=== PATIENT | male | born 1965 | race African-American/Black ===

== ENCOUNTER 2017-03-26 23:33 | Inpatient (IN) | payer BC ==
--- NOTE | 2017-03-26 23:42 | PDOC ---
History of Present Illness - General History Source: Patient Exam Limitations: No Limitations - History of Present Illness Initial Comments: 03/26/17 23:57 The patient is a 51-year-old male, with a significant past medical history of hyperlipidemia, HTN, borderline diabetes (follows up with Dr. Dawn once a year ), who presents to the ED with two days of left-sided chest discomfort that radiates up to his left shoulder and down to his left shoulder blade. Pt does report moving some things around the house on Wednesday but was not experiencing pain then. He denies any abdominal pain, diarrhea, or constipation. He denies any chest pain or shortness of breath. PCP: Dr. López Felder Hx: Pt denies any tobacco use or drug use. Surgical Hx: Knee surgeries bilaterally (torn meniscus) Allergies: nuts <Page Infante - Last Filed: 03/27/17 00:06> <Melani Lujan - Last Filed: 03/27/17 20:03> - General Stated Complaint: CHEST DISCOMFORT Time Seen by Provider: 03/26/17 23:40 Past History <Page Infante - Last Filed: 03/27/17 00:06> - Past Medical History Anemia: No Asthma: No Cancer: No Cardiac Disorders: No CVA: No COPD: No CHF: No Dementia: No Diabetes: No GI Disorders: Yes (GERD) Disorders: No HTN: Yes Hypercholesterolemia: Yes Liver Disease: No Seizures: No Thyroid Disease: No - Surgical History Abdominal Surgery: No Appendectomy: Yes Cardiac Surgery: No Cholecystectomy: No Lung Surgery: No Neurologic Surgery: No [facility]opedic Surgery: Yes ([facility] - Immunization History Immunization Up to Date: Yes - Psycho/Social/Smoking Cessation Hx Anxiety: No Suicidal Ideation: No Smoking History: Never smoked Have you smoked in the past 12 months: No Hx Alcohol Use: No Drug/Substance Use Hx: No Substance Use Type: None Hx Substance Use Treatment: No <Melani Lujan - Last Filed: 03/27/17 20:03> - Past Medical History Allergies/Adverse Reactions: Allergies Allergy/AdvReac Type Severity Reaction Status Date / Time peanut Allergy Severe Hives,SWELL Verified 03/26/17 23:53 ING tree nut [Tree Nut] Allergy Severe Hives,SWELL Verified 03/26/17 23:53 ING No Known Drug Allergies Allergy Verified 03/26/17 23:53 shellfish derived AdvReac Severe GOUT Verified 03/26/17 23:53 Home Medications: Ambulatory Orders Amlodipine Besylate [Norvasc -] 10 mg PO DAILY 05/25/14 Diltiazem Cd [Cardizem Cd -] 300 mg PO DAILY 05/25/14 Lisinopril [Prinivil] 30 mg PO DAILY 05/25/14 Simvastatin [Zocor -] 20 mg PO HS 05/30/14 Review of Systems - Review of Systems Able to Perform ROS?: Yes Comments:: 03/26/17 23:58 CONSTITUTIONAL: Absent: fever, chills, diaphoresis, generalized weakness, malaise, loss of appetite HEENT: Absent: rhinorrhea, nasal congestion, throat pain, throat swelling, difficulty swallowing, mouth swelling, ear pain, eye pain, visual Changes CARDIOVASCULAR: Present: chest pain Absent: syncope, palpitations, irregular heart rate, lightheadedness, peripheral edema RESPIRATORY: Absent: cough, shortness of breath, dyspnea with exertion, orthopnea, wheezing, stridor, hemoptysis GASTROINTESTINAL: Absent: abdominal pain, abdominal distension, nausea, vomiting, diarrhea, constipation, melena, hematochezia GENITOURINARY: Absent: dysuria, frequency, urgency, hesitancy, hematuria, flank pain, genital pain MUSCULOSKELETAL: Present: left shoulder pain, and left shoulder blade pain. Absent: arthralgia, joint swelling SKIN: Absent: rash, itching, pallor HEMATOLOGIC/IMMUNOLOGIC: Absent: easy bleeding, easy bruising, lymphadenopathy, frequent infections ENDOCRINE: Absent: unexplained weight gain, unexplained weight loss, heat intolerance, cold intolerance NEUROLOGIC: Absent: headache, focal weakness or paresthesias, dizziness, unsteady gait, seizure, mental status changes, bladder or bowel incontinence PSYCHIATRIC: Absent: anxiety, depression, suicidal or homicidal ideation, hallucinations. <Page Infante - Last Filed: 03/27/17 00:06> *Physical Exam - Physical Exam Comments: 03/27/17 00:02 GENERAL: Well developed, well nourished. Awake and alert. No acute distress. Not diaphoretic. +Obese HEENT: Normocephalic, atraumatic. PERRLA, EOMI. No conjunctival pallor. Sclera are non- icteric. Moist mucous membranes. Oropharynx is clear. NECK: Supple. Full ROM. No JVD. Carotid pulses 2+ and symmetric, without bruits. No thyromegaly. No lymphadenopathy. CARDIOVASCULAR: Regular rate and rhythm. No murmurs, rubs, or gallops. Distal pulses are 2+ and symmetric. PULMONARY: No evidence of respiratory distress. Lungs clear to auscultation bilaterally. No wheezing, rales or rhonchi. ABDOMINAL: Soft. Non-tender. Non-distended. No rebound or guarding. No organomegaly. Normoactive bowel sounds. MUSCULOSKELETAL: No CVA tenderness. Moving all extremities. +Pain with movement of left shoulder. EXTREMITIES: No cyanosis. No clubbing. No edema. No calf tenderness. SKIN: Warm and dry. Normal capillary refill. No rashes. No jaundice. NEUROLOGICAL: Alert, awake, appropriate. PSYCHIATRIC: Cooperative. Good eye contact. Appropriate mood and affect. <Page Infante - Last Filed: 03/27/17 00:06> ED Treatment Course - LABORATORY CBC & Chemistry Diagram: 03/27/17 00:04 03/27/17 00:04 <Melani Lujan - Last Filed: 03/27/17 20:03> Medical Decision Making - Medical Decision Making 03/27/17 20:01 Pt with left shoulder and neck pain and chest pain x 2 days. He is overweight HTN and high cholesterol. He is norderline diabetic and admits eating unhealthy foods. He has never had pain lasting like this before. EKG #1 Shows flipped lateral T waves. Pt's troponin elevated, but his CPK and CK-MB are not elevated st this point. EKG#2 is the same as the first. The [place] is not evolving. Pt was given meds, hospitalist notified and he was admitted to tele. <Melani Lujan - Last Filed: 03/27/17 20:03> *DC/Admit/Observation/Transfer - Attestations Scribe Attestion: 03/27/17 00:02 Documentation prepared by Page Infante, acting as medical device sales representative for Melani Lujan MD. <Page Infante - Last Filed: 03/27/17 00:06> - Discharge Dispostion Admit: Yes <Melani Lujan - Last Filed: 03/27/17 20:03> Diagnosis at time of Disposition: Myocardial infarction, Non-ST elevation (NSTEMI) myocardial infarction - Discharge Dispostion Condition at time of disposition: Guarded - Referrals
[2017-03-27 00:13] LABS: BASOPHIL 0.5 % (0-2.0); EOSINOPHIL 1.5 % (0-4.5); MCH 30.6 pg (25.7-33.7); MCHC 33.7 g/dl (32.0-35.9); MEAN CELL VOLUME 90.9 fl (80-96); MEAN PLT VOLUME 8.7 fl (7.5-11.1); NEUTROPHILS 65.1 % (42.8-82.8); PLATELET COUNT 247 K/MM3 (134-434); RDW 12.4 % (11.9-15.9); WHITE BLOOD COUNT 13.7 K/mm3 (4.0-10.0)
[2017-03-27 00:30] LABS: INR 1.04 (0.82-1.09); PROTHROMBIN TIME (PATIENT) 11.4 SEC (9.98-11.88)
[2017-03-27 00:43] LABS: ALBUMIN 3.6 g/dl (3.4-5.0); ANION GAP 8 (8-16); BILIRUBIN,TOTAL 0.3 mg/dL (0.2-1.0); CALCIUM 8.9 mg/dL (8.5-10.1); CO2 29 mmol/L (21-32); CREATININE 0.8 mg/dL (0.7-1.3); GLUCOSE,RANDOM 89 mg/dL (74-106); SGOT/AST 25 U/L (15-37); SGPT/ALT 45 U/L (12-78); TOT PROT 7.1 g/dl (6.4-8.2)
[2017-03-27 00:46] LABS: ALK PHOS 130 U/L (45-117); TROPONIN I 0.07 ng/ml (0.00-0.05)
[2017-03-27] MEDS ORDERED: ENOXAPARIN NA (PORCINE) 100 MG/1 ML DISP.SYRIN SQ ONE ×2 (01:32→01:48)
[2017-03-27] MEDS ORDERED: CLOPIDOGREL BISULFATE 300 MG TABLET PO ONE (01:32)
[2017-03-27] MEDS ORDERED: METOPROLOL TARTRATE 5 MG/5 ML VIAL IVPUSH ONE (01:33)
[2017-03-27] MEDS ORDERED: METOPROLOL TARTRATE 50 MG TABLET (FP) PO ONE (01:34)
[2017-03-27] MEDS ORDERED: ASPIRIN 81 MG CHEWABLE TABLETS PO ONE (01:36)
[2017-03-27] MEDS ORDERED: ASPIRIN 325 MG TABLET ONE (01:47)
[2017-03-27] MEDS ORDERED: METOPROLOL TARTRATE 5 MG/5 ML VIAL ONE (01:47)
[2017-03-27] MEDS ORDERED: METOPROLOL TARTRATE 50 MG TABLET (FP) ONE (01:47)
[2017-03-27] MEDS ORDERED: CLOPIDOGREL BISULFATE 300 MG TABLET ONE (01:48)
--- NOTE | 2017-03-27 02:36 | HP ---
CHIEF COMPLAINT: Left Sided Chest Pain PCP: Dr. Manolo Dawn HISTORY OF PRESENT ILLNESS: This is a 51 y/o male with a past medical history of HTN, HLD, Bord[place] DM. Who presents to the ED with L-sided CP x 2 days. Patient reports the pain as sharp radiating to his L- shoulder, increased with movement. Patient reports lifting heavy bags of clothes for [employer] 1 day ago. Patient reports taking Aleve with little relief. Patient reports having familial Cardiac hx. Patient denies fever, chills, dizziness, SOB, AP, N/V/D, constipation, dysuria. ER course was notable for: (1) Cardiac Enzymes neg x1 (2) EKG- NSR with Nonspecific T wave abnormality (3) WBC 12.7 Recent Travel: None PAST MEDICAL HISTORY: HTN HLD Bordeline DM PAST SURGICAL HISTORY: Meniscus Repair Appendectomy R- Shoulder Arthroscopy Social History: Smoking: Never Alcohol: Occasional Drugs: Denies Lives with family Family History: Mother: HTN, DM Grandfather: [place] Uncle: DM Allergies peanut Allergy (Severe, Verified 03/26/17 23:53) Hives,SWELLING tree nut [Tree Nut] Allergy (Severe, Verified 03/26/17 23:53) Hives,SWELLING No Known Drug Allergies Allergy (Verified 03/26/17 23:53) shellfish derived Adverse Reaction (Severe, Verified 03/26/17 23:53) GOUT HOME MEDICATIONS: Home Medications Medication Instructions Recorded Amlodipine Besylate [Norvasc -] 10 mg PO DAILY 05/25/14 Diltiazem Cd [Cardizem Cd -] 300 mg PO DAILY 05/25/14 Lisinopril [Prinivil] 30 mg PO DAILY 05/25/14 Simvastatin [Zocor -] 20 mg PO HS 05/30/14 Clindamycin [Cleocin -] 300 mg PO TID #30 capsule 07/10/16 Colchicine [Colcrys -] 1.2 mg PO ONCE #3 tab 08/25/16 REVIEW OF SYSTEMS CONSTITUTIONAL: Absent: fever, chills, diaphoresis, generalized weakness, malaise, loss of appetite, weight change HEENT: Absent: rhinorrhea, nasal congestion, throat pain, throat swelling, difficulty swallowing, mouth swelling, ear pain, eye pain, visual changes CARDIOVASCULAR: chest pain Absent: syncope, palpitations, irregular heart rate, lightheadedness, peripheral edema RESPIRATORY: Absent: cough, shortness of breath, dyspnea with exertion, orthopnea, wheezing, stridor, hemoptysis GASTROINTESTINAL: Absent: abdominal pain, abdominal distension, nausea, vomiting, diarrhea, constipation, melena, hematochezia GENITOURINARY: Absent: dysuria, frequency, urgency, hesitancy, hematuria, flank pain, genital pain MUSCULOSKELETAL: L-shoulder pain Absent: myalgia, arthralgia, joint swelling, back pain, neck pain SKIN: Absent: rash, itching, pallor HEMATOLOGIC/IMMUNOLOGIC: Absent: easy bleeding, easy bruising, lymphadenopathy, frequent infections ENDOCRINE: Absent: unexplained weight gain, unexplained weight loss, heat intolerance, cold intolerance NEUROLOGIC: Absent: headache, focal weakness or paresthesias, dizziness, unsteady gait, seizure, mental status changes, bladder or bowel incontinence PSYCHIATRIC: Absent: anxiety, depression, suicidal or homicidal ideation, hallucinations. PHYSICAL EXAMINATION Vital Signs - 24 hr 03/26/17 03/27/17 23:57 02:05 Temperature 97.6 F Pulse Rate 81 82 Respiratory 22 Rate Blood Pressure 147/87 159/93 O2 Sat by Pulse 95 Oximetry (%) GENERAL: Severely Obese, awake, alert, and fully oriented, in no acute distress. HEAD: Normal with no signs of trauma. EYES: Pupils equal, round and reactive to light, extraocular movements intact, sclera anicteric, conjunctiva clear. No lid lag. EARS, NOSE, THROAT: Ears normal, nares patent, oropharynx clear without exudates. Moist mucous membranes. NECK: Normal range of motion, supple without lymphadenopathy, JVD, or masses. LUNGS: Breath sounds equal, clear to auscultation bilaterally. No wheezes, and no crackles. No accessory muscle use. HEART: Regular rate and rhythm, normal S1 and S2 without murmur, rub or gallop. CP non-reproducible upon palpation ABDOMEN: Soft, nontender, not distended, normoactive bowel sounds, no guarding, no rebound, no masses. No hepatomegaly or splenomegaly. MUSCULOSKELETAL: Normal range of motion at all joints. No bony deformities or tenderness. No CVA tenderness. UPPER EXTREMITIES: 2+ pulses, warm, well-perfused. No cyanosis. No clubbing. No peripheral edema. LOWER EXTREMITIES: 2+ pulses, warm, well-perfused. No calf tenderness. No peripheral edema. NEUROLOGICAL: Cranial nerves II-XII intact. Normal speech. Gait not observed. PSYCHIATRIC: Cooperative. Good eye contact. Appropriate mood and affect. SKIN: Warm, dry, normal turgor, no rashes or lesions noted, normal capillary refill. Laboratory Results - last 24 hr 03/27/17 03/27/17 03/27/17 00:04 00:04 00:04 WBC 13.7 H RBC 4.16 Hgb 12.7 Hct 37.8 MCV 90.9 MCH 30.6 MCHC 33.7 RDW 12.4 Plt Count 247 MPV 8.7 Neutrophils % 65.1 Lymphocytes % 21.9 Monocytes % 11.0 H Eosinophils % 1.5 Basophils % 0.5 INR 1.04 Sodium 140 Potassium 3.5 Chloride 103 Carbon Dioxide 29 Anion Gap 8 BUN 11 Creatinine 0.8 Creat Clearance w eGFR > 60 Random Glucose 89 Calcium 8.9 Total Bilirubin 0.3 D AST 25 ALT 45 D Alkaline Phosphatase 130 H Creatine Kinase 141 Troponin I 0.07 H Total Protein 7.1 Albumin 3.6 ASSESSMENT/PLAN: This is a 51 y/o male with a PMHx of: HTN, HLD, Borderline DM. Placed on Tele Observation for NSTEMI for further evaluation of their emergent condition. Problems 1. Chest Pain r/o NSTEMI 2. Hypertension 3. Leukocytosis 4. Hyperlipidemia 5. Borderline DM 6. Severely Obese Problem List - Problem (1) Non-ST elevation (NSTEMI) myocardial infarction Assessment/Plan: - Continue Tele monitoring - HEART Score 4 - SUZI Score 2 - Serial Enzymes neg x1 - Appreciate Cardiology Consult - EKG reviewed - Chest Xray-pending - Asa, Lopressor, Plavix, Lovenox given in ED, will continue - Echo - Stress Test - Low Na Diet - Weight Loss - CBC, BMP, Mg, Phos- am Code(s): I21.4 - NON-ST ELEVATION (NSTEMI) MYOCARDIAL INFARCTION (2) HTN (hypertension) Assessment/Plan: - Stable - Monitor BP - Continue home med - Monitor renal function Code(s): I10 - ESSENTIAL (PRIMARY) HYPERTENSION (3) HLD (hyperlipidemia) Assessment/Plan: - Lipid panel in am - Continue home med - Monitor LFTs Code(s): E78.5 - HYPERLIPIDEMIA, UNSPECIFIED (4) Leukocytosis Assessment/Plan: - Likely secondary to inflammatory vs bacterial - Patient is afebrile - Repeat CBC in am Code(s): D72.829 - ELEVATED WHITE BLOOD CELL COUNT, UNSPECIFIED (5) Severe obesity (BMI 35.0-39.9) with comorbidity Assessment/Plan: - RD - Carb Control Diet - Isometric Exercise - f/u with PCP Code(s): E66.01 - MORBID (SEVERE) OBESITY DUE TO EXCESS CALORIES (6) GERD (gastroesophageal reflux disease) Assessment/Plan: - Continue home med Code(s): K21.9 - GASTRO-ESOPHAGEAL REFLUX DISEASE WITHOUT ESOPHAGITIS (7) History of borderline diabetes mellitus Assessment/Plan: - Controlled - No current med - Monitor BMP Code(s): Z87.898 - PERSONAL HISTORY OF OTHER SPECIFIED CONDITIONS (8) DVT prophylaxis Assessment/Plan: - OOB - SCDs - Lovenox SQ Code(s): VHF1585 - Visit type - Emergency Visit Emergency Visit: Yes ED Registration Date: 03/26/17 Care time: The patient presented to the Emergency Department on the above date and was hospitalized for further evaluation of their emergent condition. - New Patient This patient is new to me today: Yes Date on this admission: 03/27/17 - Critical Care Critical Care patient: No
[2017-03-27 06:12] VITALS: BMI 48.9
[2017-03-27] MEDS ORDERED: PNEUMOC 13-VAL CONJ-DIP CRM/PF 0.5 ML DISP.SYRIN IM ONE (06:12)
[2017-03-27 07:43] LABS: THYROID STIMULATING HORMONE 1.25 uIU/ml (0.358-3.74); TROPONIN I 0.08 ng/ml (0.00-0.05)
[2017-03-27] MEDS ORDERED: PT OWN MED DRAWER 7, Y5N ONE (09:27)
[2017-03-27] MEDS ORDERED: ASPIRIN 81 MG CHEWABLE TABLETS PO SCH (10:00)
[2017-03-27] MEDS: METOPROLOL TARTRATE 25 MG TABLET (FP) PO SCH ×2 (10:10→21:06)
[2017-03-27] MEDS: amLODIPine BESYLATE 10 MG TABLET (FP) PO SCH (10:10)
[2017-03-27] MEDS: ENOXAPARIN NA (PORCINE) 100 MG/1 ML DISP.SYRIN SQ SCH ×2 (11:58→21:06)
--- NOTE | 2017-03-27 11:59 | CONSULT ---
Consult Consult Specialty:: Cardiology Referred by:: ICU Reason for Consultation:: Chest pain - History of Present Illness Chief Complaint: Chest pain History of Present Illness: 51 yo AA male Known h/o HTN and dyslipidemia Followed by Dr. Bruner as outpatient Now presents with 2-3 days of intermittent chest pain and neck pain Pain is triggered by movement of neck or left arm and torso movement Worse with walking Initial ECG in ED showed non-specific T-wave changes and Trop 0.07 This AM still with CP/neck pain with movement. No prior h/o CAD, PCI or CABG or MT - Alcohol/Substance Use Hx Alcohol Use: No - Smoking History Smoking history: Never smoked Have you smoked in the past 12 months: No Home Medications - Allergies Allergies/Adverse Reactions: Allergies Allergy/AdvReac Type Severity Reaction Status Date / Time peanut Allergy Severe Hives,SWELL Verified 03/26/17 23:53 ING tree nut [Tree Nut] Allergy Severe Hives,SWELL Verified 03/26/17 23:53 ING No Known Drug Allergies Allergy Verified 03/26/17 23:53 shellfish derived AdvReac Severe GOUT Verified 03/26/17 23:53 - Home Medications Home Medications: Ambulatory Orders Amlodipine Besylate [Norvasc -] 10 mg PO DAILY 05/25/14 Diltiazem Cd [Cardizem Cd -] 300 mg PO DAILY 05/25/14 Lisinopril [Prinivil] 30 mg PO DAILY 05/25/14 Simvastatin [Zocor -] 20 mg PO HS 05/30/14 Review of Systems - Review of Systems HENT: reports: Other (Neck pain) Cardiovascular: reports: Chest Pain Physical Exam Vital Signs: Vital Signs Temperature 98.0 F 03/27/17 06:05 Pulse Rate 66 03/27/17 06:05 Respiratory Rate 20 03/27/17 06:05 Blood Pressure 150/91 03/27/17 06:05 O2 Sat by Pulse Oximetry (%) 95 03/27/17 06:05 Constitutional: Yes: No Distress, Calm Eyes: Yes: WNL HENT: Yes: WNL Neck: Yes: WNL, Supple, Trachea Midline, Thyromegaly Cardiovascular: Yes: WNL Respiratory: Yes: WNL, Regular, CTA Bilaterally Gastrointestinal: Yes: WNL, Normal Bowel Sounds Musculoskeletal: Yes: Other ((+) reproducible chest pain on palpation) Extremities: Yes: WNL Edema: No Imaging - Results EKG: Image Reviewed (ECG at 03/27/2017 (01:40) NSR non-specific T wave changes.) Assessment/Plan 51 yo AA male with CV risk factors of HTN and dyslipidemia Now with Chest pain by history consistent with musculoskeletal etiology, however with mildly elevated Trop and evolving ECG changes. I discussed with both he and his mother at the bedside the clinical therapy options including proceeding with cardiac cath given trop and ECG. Alternatively pursuing a pharma stress is not unreasonable but given his CV risk and (+) trop, I would still feel obliged to have angiogram even if the MIBI was normal. HE understood and wanted to wait until Dr. Bruner returned for further discussion. Would continue to treat as ACS with ASA, LMWH, metoprolol and high intensity statin therapy. Continue to trend cardiac enzymes
[2017-03-27 12:37] LABS: TROPONIN I 0.08 ng/ml (0.00-0.05)
[2017-03-27] MEDS ORDERED: CLOPIDOGREL BISULFATE 75 MG TABLET (FP) PO ONE (17:10)
[2017-03-27 21:54] LABS: TROPONIN I 0.09 ng/ml (0.00-0.05)
[2017-03-27] MEDS ORDERED: ATORVASTATIN CA 10 MG TABLET (FP) PO SCH ×3 (22:00)
[2017-03-28] MEDS ORDERED: ZOLPIDEM TARTRATE 5 MG TABLET PO STA (00:40)
[2017-03-28 06:06] LABS: BASOPHIL 0.4 % (0-2.0); EOSINOPHIL 2.5 % (0-4.5); MCHC 32.8 g/dl (32.0-35.9); MEAN CELL VOLUME 91.6 fl (80-96); MEAN PLT VOLUME 9.3 fl (7.5-11.1); NEUTROPHILS 59.4 % (42.8-82.8); PLATELET COUNT 274 K/MM3 (134-434); RDW 12.5 % (11.9-15.9); WHITE BLOOD COUNT 11.5 K/mm3 (4.0-10.0)
[2017-03-28 06:44] LABS: ANION GAP 7 (8-16); CO2 32 mmol/L (21-32); CREATININE 0.7 mg/dL (0.7-1.3); GLUCOSE,RANDOM 98 mg/dL (74-106); MAGNESIUM 1.9 mg/dL (1.8-2.4); PHOSPHOROUS 3.4 mg/dL (2.5-4.9)
[2017-03-28] MEDS ORDERED: PT OWN MED DRAWER 7, Y5N ONE (09:21)
[2017-03-28] MEDS: ASPIRIN 81 MG CHEWABLE TABLETS PO SCH (09:37)
[2017-03-28] MEDS: METOPROLOL TARTRATE 25 MG TABLET (FP) PO SCH ×2 (09:38→21:43)
[2017-03-28] MEDS: ENOXAPARIN NA (PORCINE) 100 MG/1 ML DISP.SYRIN SQ SCH ×2 (09:38→21:49)
[2017-03-28] MEDS: CLOPIDOGREL BISULFATE 75 MG TABLET (FP) PO SCH (09:38)
[2017-03-28] MEDS: amLODIPine BESYLATE 10 MG TABLET (FP) PO SCH (09:39)
--- NOTE | 2017-03-28 12:34 | PN ---
Progress Note, Physician History of Present Illness: No events overnight Still with neck pain and left shoulder MSK - Current Medication List Current Medications: Active Medications Amlodipine Besylate (Norvasc -) 10 mg PO DAILY [facility] Last Admin: 03/28/17 09:39 Dose: 10 mg Aspirin (Asa -) 81 mg PO DAILY [facility] Last Admin: 03/28/17 09:37 Dose: 81 mg Atorvastatin Calcium (Lipitor -) 80 mg PO HS [facility] Last Admin: 03/27/17 21:05 Dose: 80 mg Clopidogrel Bisulfate (Plavix -) 75 mg PO DAILY [facility] Last Admin: 03/28/17 09:38 Dose: 75 mg Diltiazem HCl (Cardizem Cd -) 300 mg PO DAILY [facility] Last Admin: 03/28/17 09:37 Dose: 300 mg Enoxaparin Sodium (Lovenox -) 100 mg SQ BID [facility] Last Admin: 03/28/17 09:38 Dose: 100 mg Metoprolol Tartrate (Lopressor -) 25 mg PO BID [facility] Last Admin: 03/28/17 09:38 Dose: 25 mg - Objective Vital Signs: Vital Signs Temperature 98.6 F 03/28/17 10:00 Pulse Rate 71 03/28/17 12:00 Respiratory Rate 20 03/28/17 12:00 Blood Pressure 148/87 03/28/17 12:00 O2 Sat by Pulse Oximetry (%) 96 03/28/17 07:40 Constitutional: Yes: Well Nourished, No Distress, Calm Eyes: Yes: WNL, Conjunctiva Clear HENT: Yes: WNL, Atraumatic Neck: Yes: WNL, Supple, Trachea Midline Cardiovascular: Yes: Regular Rate and Rhythm Respiratory: Yes: WNL, Regular, CTA Bilaterally Gastrointestinal: Yes: WNL Extremities: Yes: WNL Edema: No Labs: CBC, BMP 03/28/17 05:10 03/28/17 05:10 INR, PTT INR 1.04 (0.82-1.09) 03/27/17 00:04 Assessment/Plan 51 yo AA male with CV risk factors of HTN and dyslipidemia Non-cardiac chest pain but with (+) troponin and ECG changes suggestive of ACS -Discussed with patient again this AM, will transfer to [facility] tomorrow for cardiac cath -Transfer will be in afternoon directly to the dental laboratory manager -Continue LMWH, hold tomorrow AM dose please -NPO after lunch -Continue metoprolol,ASA and statin. Please contact me if he develops any recurrent chest pain or change in clinical status.
--- NOTE | 2017-03-28 13:38 | PN ---
Physical Exam: SUBJECTIVE: Patient seen and examined in ICU. Family at bedside. Continued left sternal border chest pain that worsens with movement and light palpation. OBJECTIVE: Vital Signs Period Temp Pulse Resp BP Sys/Crawford Pulse Ox Last 24 Hr 98.0 F-98.6 F 68-88 18-24 132-154/70-93 96-96 GENERAL: The obese patient is awake, alert, and fully oriented, in no acute distress. LUNGS: Breath sounds equal, clear to auscultation bilaterally, no wheezes, no crackles, no accessory muscle use. HEART: Regular rate and rhythm, S1, S2 without murmur. ABDOMEN: Soft, nontender, nondistended, normoactive bowel sounds, no guarding. Obese abdomen. EXTREMITIES: 2+ pulses, warm, well-perfused, no edema. NEUROLOGICAL: Cranial nerves II through XII grossly intact. Normal speech, gait steady. PSYCH: Normal mood, normal affect. SKIN: Warm, dry, normal turgor, no rashes or lesions noted Laboratory Results - last 24 hr 03/27/17 03/27/17 03/27/17 16:00 20:45 20:45 WBC RBC Hgb Hct MCV MCH MCHC RDW Plt Count MPV Neutrophils % Lymphocytes % Monocytes % Eosinophils % Basophils % Sodium Potassium Chloride Carbon Dioxide Anion Gap BUN Creatinine Random Glucose Calcium Phosphorus Magnesium 2.0 Creatine Kinase 173 D Creatine Kinase Index Y CK-MB (CK-2) < 1.000 CK-MB (CK-2) Rel Index Cancelled Troponin I 0.09 H 03/28/17 03/28/17 03/28/17 05:10 05:10 05:10 WBC 11.5 H RBC 4.26 Hgb 12.8 Hct 39.0 MCV 91.6 MCH 30.0 MCHC 32.8 RDW 12.5 Plt Count 274 MPV 9.3 Neutrophils % 59.4 Lymphocytes % 27.8 D Monocytes % 9.9 Eosinophils % 2.5 Basophils % 0.4 Sodium 141 Potassium 3.8 Chloride 102 Carbon Dioxide 32 Anion Gap 7 L BUN 10 Creatinine 0.7 Random Glucose 98 Calcium 9.0 Phosphorus 3.4 Magnesium 1.9 Creatine Kinase 153 Creatine Kinase Index 0.7 CK-MB (CK-2) < 1.000 CK-MB (CK-2) Rel Index Troponin I 0.10 H 03/28/17 05:10 WBC RBC Hgb Hct MCV MCH MCHC RDW Plt Count MPV Neutrophils % Lymphocytes % Monocytes % Eosinophils % Basophils % Sodium Potassium Chloride Carbon Dioxide Anion Gap BUN Creatinine Random Glucose Calcium Phosphorus Magnesium Creatine Kinase Creatine Kinase Index CK-MB (CK-2) CK-MB (CK-2) Rel Index Cancelled Troponin I Active Medications 3 Generic Name Dose Route Start Last Admin Trade Name Andrea PRN Reason Stop Dose Admin Amlodipine Besylate 10 mg 03/27/17 10:00 03/28/17 09:39 Norvasc - PO 10 mg DAILY FARHAT Administration Aspirin 81 mg 03/28/17 10:00 03/28/17 09:37 Asa - PO 81 mg DAILY FARHAT Administration Atorvastatin Calcium 80 mg 03/27/17 22:00 03/27/17 21:05 Lipitor - PO 80 mg HS FARHAT Administration Clopidogrel Bisulfate 75 mg 03/28/17 10:00 03/28/17 09:38 Plavix - PO 75 mg DAILY FARHAT Administration Diltiazem HCl 300 mg 03/27/17 10:00 03/28/17 09:37 Cardizem Cd - PO 300 mg DAILY FARHAT Administration Enoxaparin Sodium 100 mg 03/27/17 10:00 03/28/17 09:38 Lovenox - SQ 100 mg BID FARHAT Administration Metoprolol Tartrate 25 mg 03/27/17 10:00 03/28/17 09:38 Lopressor - PO 25 mg BID AFRHAT Administration EKG: NSR non-specific T wave changes. ASSESSMENT/PLAN: A: 51 yo man with PMH HTN, HLD, GERD and boderline DM with consistent left sternal border chest pain which increases with movement. P: 1. ACS - ASA 81 - Lopressor 25 bid - LMWH 100mg bid- hold 03/29 AM dose - Plavix 75 - Lipitor 80 qhs - Troponins uptrending - continue to trend trop - Cards [place] following - Transfer to [facility] for cardiac cath 03/29 - Will need outpatient MICHI evaluation 2. HTN - Norvasc 10 - Diltiazem 300 qd - Metoprolol 25 bid 3. HLD - Lipitor 4. Obesity class III - encouraged lifestyle changes - Will need outpatient MICHI evaluation 5. F/E/N - Low Na Diet - NPO after lunch for cardiac cath 6. PPX - Lovenox 100mg bid - OOB Dispo- Patient will be transferred to [facility] 03/29 for cardiac cath. Visit type - Emergency Visit Emergency Visit: Yes ED Registration Date: 03/27/17 Care time: The patient presented to the Emergency Department on the above date and was hospitalized for further evaluation of their emergent condition. - New Patient This patient is new to me today: Yes Date on this admission: 03/30/17 - Critical Care Critical Care patient: No
[2017-03-28] MEDS ORDERED: ACETAMINOPHEN 500 MG TABLET (FP) PO PRN (13:39)
[2017-03-28] MEDS ORDERED: ZOLPIDEM TARTRATE 5 MG TABLET PO PRN (21:28)
[2017-03-28] MEDS ORDERED: ATORVASTATIN CA 80 MG TABLET (FP) PO SCH (21:52)
[2017-03-29 06:18] LABS: BASOPHIL 0.5 % (0-2.0); MEAN CELL VOLUME 90.8 fl (80-96); MEAN PLT VOLUME 9.1 fl (7.5-11.1); NEUTROPHILS 57.8 % (42.8-82.8); PLATELET COUNT 296 K/MM3 (134-434); RDW 12.4 % (11.9-15.9); WHITE BLOOD COUNT 10.8 K/mm3 (4.0-10.0)
[2017-03-29 06:55] LABS: ANION GAP 5 (8-16); CALCIUM 9.6 mg/dL (8.5-10.1); CO2 33 mmol/L (21-32); CREATININE 0.7 mg/dL (0.7-1.3); GLUCOSE,RANDOM 98 mg/dL (74-106)
[2017-03-29 06:57] LABS: TROPONIN I 0.09 ng/ml (0.00-0.05)
--- NOTE | 2017-03-29 09:14 | EKG ---
Test Reason : Blood Pressure : / mmHG Vent. Rate : 067 BPM Atrial Rate : 067 BPM P-R Int : 168 ms QRS Dur : 114 ms QT Int : 440 ms P-R-T Axes : 053 040 052 degrees QTc Int : 464 ms NORMAL SINUS RHYTHM INCOMPLETE LEFT BUNDLE BRANCH BLOCK MINIMAL VOLTAGE CRITERIA FOR LVH, MAY BE NORMAL VARIANT NONSPECIFIC T WAVE ABNORMALITY PROLONGED QT ABNORMAL ECG WHEN COMPARED WITH ECG OF 27-MAR-2017 11:25, NO SIGNIFICANT CHANGE WAS FOUND Confirmed by GREYSON PEREZ MD ([id number]) on 03/29/2017 9:13:58 AM Referred By: Cory CLINTON Confirmed By:GREYSON PEREZ MD
[2017-03-29] MEDS ORDERED: PT OWN MED DRAWER 7, Y5N ONE ×2 (09:16→10:01)
--- NOTE | 2017-03-29 09:17 | PN ---
Progress Note, Physician Chief Complaint: cp History of Present Illness: no more cp. no sob no palpitations, syncope - Current Medication List Current Medications: Active Medications Acetaminophen (Tylenol -) 1,000 mg PO Q6H PRN PRN Reason: FEVER OR PAIN Amlodipine Besylate (Norvasc -) 10 mg PO DAILY [facility] Last Admin: 03/28/17 09:39 Dose: 10 mg Aspirin (Asa -) 81 mg PO DAILY [facility] Last Admin: 03/28/17 09:37 Dose: 81 mg Atorvastatin Calcium (Lipitor -) 80 mg PO HS [facility] Clopidogrel Bisulfate (Plavix -) 75 mg PO DAILY [facility] Last Admin: 03/28/17 09:38 Dose: 75 mg Diltiazem HCl (Cardizem Cd -) 300 mg PO DAILY [facility] Last Admin: 03/28/17 09:37 Dose: 300 mg Enoxaparin Sodium (Lovenox -) 100 mg SQ BID [facility] Last Admin: 03/28/17 21:49 Dose: 100 mg Metoprolol Tartrate (Lopressor -) 25 mg PO BID [facility] Last Admin: 03/28/17 21:43 Dose: 25 mg Zolpidem Tartrate (Ambien -) 10 mg PO HS PRN PRN Reason: INSOMNIA Last Admin: 03/28/17 21:44 Dose: 10 mg - Objective Vital Signs: Vital Signs Temperature 98.8 F 03/28/17 14:00 Pulse Rate 91 H 03/29/17 08:00 Respiratory Rate 21 03/29/17 08:14 Blood Pressure 152/90 03/29/17 08:00 O2 Sat by Pulse Oximetry (%) 98 03/29/17 08:14 Constitutional: Yes: No Distress, Calm, Obese Cardiovascular: Yes: Regular Rate and Rhythm, S1, S2. No: Gallop, Murmur, Rub Respiratory: Yes: Regular, CTA Bilaterally. No: Accessory Muscle Use, Rales, Wheezes Extremities: No: Cold Edema: No Neurological: Yes: Alert, Oriented Psychiatric: No: Agitated Labs: CBC, BMP 03/29/17 05:05 03/29/17 05:05 INR, PTT INR 1.04 (0.82-1.09) 03/27/17 00:04 - ....Imaging EKG: Other (tele: NSR) Assessment/Plan atypical CP -sx's very positional and pleuritic component noted (with cough)--suspect costochondritis/other m-skel. -doubt pericarditis but exam limited (obese habitus)--check echo for effusion, CRP/ESR -trop flat and in intermediate range not diagnostic of myocardial injury (0.07 to 0.10) -ECG changes here suspicious for active myocardial ischemia per dr frederick (vs LVH with repol abnormalities) -plan is for cath today per dr frederick d/w pt and family -cont meds as doing: AC (lovenox--held this am), ASA, metopr, statin -sx's resolving -further plan following cath results today HTN: -suboptimal control -cont amlodipine, diltiazem (home regimen) -metopr added here -on lisinopril at home, not being given here--resumed today -observe bp trend
[2017-03-29] MEDS: ASPIRIN 81 MG CHEWABLE TABLETS PO SCH (09:22)
[2017-03-29] MEDS: METOPROLOL TARTRATE 25 MG TABLET (FP) PO SCH (09:22)
--- NOTE | 2017-03-29 09:22 | EKG ---
Test Reason : Blood Pressure : / mmHG Vent. Rate : 069 BPM Atrial Rate : 069 BPM P-R Int : 190 ms QRS Dur : 108 ms QT Int : 430 ms P-R-T Axes : 004 047 004 degrees QTc Int : 460 ms NORMAL SINUS RHYTHM MINIMAL VOLTAGE CRITERIA FOR LVH, MAY BE NORMAL VARIANT NONSPECIFIC T WAVE ABNORMALITY PROLONGED QT ABNORMAL ECG WHEN COMPARED WITH ECG OF 27-MAR-2017 01:40, NO SIGNIFICANT CHANGE WAS FOUND Confirmed by ANA GREER, GREYSON ([id number]) on 03/29/2017 9:22:02 AM Referred By: Tre FLORIAN Confirmed By:GREYSON PEREZ MD
[2017-03-29] MEDS: CLOPIDOGREL BISULFATE 75 MG TABLET (FP) PO SCH (09:23)
[2017-03-29] MEDS: amLODIPine BESYLATE 10 MG TABLET (FP) PO SCH (09:23)
--- NOTE | 2017-03-29 09:29 | EKG ---
Test Reason : Blood Pressure : / mmHG Vent. Rate : 077 BPM Atrial Rate : 077 BPM P-R Int : 174 ms QRS Dur : 098 ms QT Int : 386 ms P-R-T Axes : 012 032 -10 degrees QTc Int : 436 ms POOR DATA QUALITY, INTERPRETATION MAY BE ADVERSELY AFFECTED NORMAL SINUS RHYTHM NONSPECIFIC T WAVE ABNORMALITY ABNORMAL ECG WHEN COMPARED WITH ECG OF 05-MAR-2008 09:20, PREMATURE VENTRICULAR COMPLEXES ARE NO LONGER PRESENT T WAVE INVERSION LESS EVIDENT IN ANTEROLATERAL LEADS Confirmed by GREYSON PEREZ MD ([id number]) on 03/29/2017 9:29:14 AM Referred By: Confirmed By:GREYSON PEREZ MD
--- NOTE | 2017-03-29 09:29 | EKG ---
Test Reason : Blood Pressure : / mmHG Vent. Rate : 082 BPM Atrial Rate : 082 BPM P-R Int : 166 ms QRS Dur : 114 ms QT Int : 384 ms P-R-T Axes : 002 020 027 degrees QTc Int : 448 ms NORMAL SINUS RHYTHM MINIMAL VOLTAGE CRITERIA FOR LVH, MAY BE NORMAL VARIANT NONSPECIFIC T WAVE ABNORMALITY ABNORMAL ECG WHEN COMPARED WITH ECG OF 05-MAR-2008 09:20, PREMATURE VENTRICULAR COMPLEXES ARE NO LONGER PRESENT T WAVE INVERSION LESS EVIDENT IN LATERAL LEADS Confirmed by GREYSON PEREZ MD ([id number]) on 03/29/2017 9:29:23 AM Referred By: Confirmed By:GREYSON PEREZ MD
--- NOTE | 2017-03-29 10:46 | DS ---
Physical Exam: SUBJECTIVE: Patient seen and examined in ICU. No acute changes overnight, no new chest pain. He tries not to move as he has feels the stab in his chest. OBJECTIVE: Vital Signs Period Temp Pulse Resp BP Sys/Crawford Pulse Ox Last 24 Hr 97.9 F-98.8 F 64-91 17-25 108-167/81-100 98-98 PE Neuro: alert, awake, cn 2-12intact Pulm: CTAB CV: s1 s2 rrr no mrg Abd: s nt nd + bs Ext: Warm, no calf tenderness, well perfused MSK: sternal tenderness with movement r to left, refers to back Laboratory Results - last 24 hr 03/29/17 03/29/17 05:05 05:05 WBC 10.8 H RBC 4.38 Hgb 13.1 Hct 39.7 MCV 90.8 MCH 30.0 MCHC 33.0 RDW 12.4 Plt Count 296 MPV 9.1 Neutrophils % 57.8 Lymphocytes % 28.6 Monocytes % 10.1 Eosinophils % 3.0 Basophils % 0.5 Sodium 140 Potassium 3.8 Chloride 102 Carbon Dioxide 33 H Anion Gap 5 L BUN 10 Creatinine 0.7 Random Glucose 98 Calcium 9.6 Troponin I 0.09 H HOSPITAL COURSE: Date of Admission:03/27/17 Date of Discharge: 03/29/17 Minutes to complete discharge: 36 Discharge Summary Reason For Visit: CELLULITIS,NON-ST ELEVATION (NSTEMI)MYOCARDIAL Current Active Problems DVT prophylaxis (Acute) GERD (gastroesophageal reflux disease) (Acute) HLD (hyperlipidemia) (Acute) HTN (hypertension) (Acute) History of borderline diabetes mellitus (Acute) Leukocytosis (Acute) Hospital Course: Initial Hospital Course: Briefly, this 51 year old male with a past medical history of HTN, HLD, presented to the ED with L-sided chest pain for 2-3 days. The pain was sharp and radiated to his L- shoulder exacerbated with movement to the neck. 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 Patient reports taking Aleve with little relief. Patient reports having familial Cardiac hx. Subsequent Hospital Course/Progress Note/Discharge Summary: 1. Chest pain/r/o ACS -Initial EKG shows non-specific T-wave changes -Troponins 0.07-0.10 -Due to CV risk (HTN, HLD) and positive trop he is to be transferred to [facility] for cardiac cath -Lovenox 100mg BID - this morning dose held -Plavix 75mg qday -Started metoprolol 25mg BID -Lipitor 80mg hs 2. HTN -Cont home norvasc 10mg, cardizem CD 300mg daily, lisinopril 30mg daily Dispo: - Transfer to [facility] for angiogram - Pt and mother aware of plan Condition: Stable - Instructions Diet, Activity, Other Instructions: Transfer to [facility] for angiogram with Dr. Nation Referrals: Nasrin Dawn MD [Staff Physician] - Loco Bruner MD [Staff Physician] - Disposition: TRANSFER ACUTE CARE/OTHER HOSP - Home Medications Comprehensive Discharge Medication List: Ambulatory Orders Amlodipine Besylate [Norvasc -] 10 mg PO DAILY 05/25/14 Diltiazem Cd [Cardizem Cd -] 300 mg PO DAILY 05/25/14 Lisinopril [Prinivil] 30 mg PO DAILY 05/25/14 Simvastatin [Zocor -] 20 mg PO HS 05/30/14 Problem List - Problems (1) Elevated troponin Code(s): R74.8 - ABNORMAL LEVELS OF OTHER SERUM ENZYMES (2) T wave inversion in electrocardiogram Code(s): R94.31 - ABNORMAL ELECTROCARDIOGRAM [ECG] [EKG] This patient is new to me today: Yes Date on this admission: 03/29/17 Emergency Visit: Yes ED Registration Date: 03/27/17 Care time: The patient presented to the Emergency Department on the above date and was hospitalized for further evaluation of their emergent condition. Critical Care patient: No - Discharge Referral Referred to [facility] Med P.C.: No
[2017-03-29] MEDS ORDERED: LISINOPRIL 20 MG TABLET (FP) PO SCH (11:30)
--- NOTE | 2017-03-29 12:25 | PN ---
Teaching Attending Note Name of Resident: Tommy Anne ATTENDING PHYSICIAN STATEMENT I saw and evaluated the patient. I reviewed the resident's note and discussed the case with the resident. I agree with the resident's findings and plan as documented. SUBJECTIVE: Pt seen and examined in the ICU. Briefly, 51yo male with h/o HTN, hyperlipidemia who presented with chest pain described as sharp and pressure like with radiation to arm and jaw with numbness. Worse with certain positions without shortness of breath, nausea or vomiting. No fevers or chills. Pt nonsmoker but with family history of CAD. Had mild elevation of troponins, given ASA, plavix, started on LMWH, transferred to ICU for further monitoring. OBJECTIVE: Last Vital Signs Temp Pulse Resp BP Pulse Ox 98.7 F 70 22 154/92 98 03/29/17 10:00 03/29/17 12:06 03/29/17 12:06 03/29/17 12:06 03/29/17 08:14 Intake & Output 03/26/17 03/27/17 03/28/17 03/29/17 23:59 23:59 23:59 23:59 Intake Total 1360 650 Output Total 500 503 Balance 860 147 Weight 250 lb 331 lb Gen: NAD at rest Heart: RRR Lung: decreased breath sounds at the bases Abd: soft, nontender Ext: no edema CBC, BMP 03/29/17 05:05 03/29/17 05:05 Troponin, BNP 03/29/17 05:05 Troponin I 0.09 H Active Medications Acetaminophen (Tylenol -) 1,000 mg PO Q6H PRN PRN Reason: FEVER OR PAIN Amlodipine Besylate (Norvasc -) 10 mg PO DAILY [facility] Last Admin: 03/29/17 09:23 Dose: 10 mg Aspirin (Asa -) 81 mg PO DAILY [facility] Last Admin: 03/29/17 09:22 Dose: 81 mg Atorvastatin Calcium (Lipitor -) 80 mg PO [facility] Clopidogrel Bisulfate (Plavix -) 75 mg PO DAILY [facility] Last Admin: 03/29/17 09:23 Dose: 75 mg Diltiazem HCl (Cardizem Cd -) 300 mg PO DAILY [facility] Last Admin: 03/29/17 09:22 Dose: 300 mg Enoxaparin Sodium (Lovenox -) 100 mg SQ BID [facility] Last Admin: 03/28/17 21:49 Dose: 100 mg Lisinopril (Prinivil) 30 mg PO DAILY [facility] Metoprolol Tartrate (Lopressor -) 25 mg PO BID [facility] Last Admin: 03/29/17 09:22 Dose: 25 mg Zolpidem Tartrate (Ambien -) 10 mg PO HS PRN PRN Reason: INSOMNIA Last Admin: 03/28/17 21:44 Dose: 10 mg ASSESSMENT AND PLAN: Chest Pain +Troponins r/o [place] HTN Hyperlipidemia - ASA, plavix - beta federico, statin - continue anticoagulation - for transfer for cardiac catheterization per cardiology
[2017-03-29 12:42] LABS: C-REACTIVE PROTEIN 1.7 MG/DL (0.00-0.3)
--- NOTE | 2017-03-29 14:38 | PN ---
Physical Exam: SUBJECTIVE: Patient seen and examined. Feeling better today, states that chest pain is much better. No other complaints. Patient denies shortness of breath, abdominal pain. OBJECTIVE: Vital Signs Temperature 98.7 F 03/29/17 10:00 Pulse Rate 70 03/29/17 12:06 Respiratory Rate 22 03/29/17 12:06 Blood Pressure 154/92 03/29/17 12:06 O2 Sat by Pulse Oximetry (%) 98 03/29/17 08:14 GENERAL: The patient is awake, alert, and fully oriented, in no acute distress. HEAD: Normal with no signs of trauma. EYES: extraocular movements intact, sclera anicteric, conjunctiva clear. No ptosis. ENT: Ears normal, nares patent, oropharynx clear without exudates, moist mucous membranes. NECK: Trachea midline, full range of motion, supple. LUNGS: Breath sounds equal, clear to auscultation bilaterally, no wheezes, no crackles, no accessory muscle use. HEART: Regular rate and rhythm, S1, S2 without murmur, rub or gallop. ABDOMEN: Soft, nontender, nondistended, normoactive bowel sounds, no guarding, no rebound. EXTREMITIES: warm, well-perfused, no edema. NEUROLOGICAL: Cranial nerves II through X grossly intact. Normal speech, gait not observed. PSYCH: Normal mood, normal affect. SKIN: Warm, dry, normal turgor, no rashes or lesions noted Laboratory Results - last 24 hr 03/29/17 03/29/17 03/29/17 05:05 05:05 05:05 WBC 10.8 H RBC 4.38 Hgb 13.1 Hct 39.7 MCV 90.8 MCH 30.0 MCHC 33.0 RDW 12.4 Plt Count 296 MPV 9.1 Neutrophils % 57.8 Lymphocytes % 28.6 Monocytes % 10.1 Eosinophils % 3.0 Basophils % 0.5 ESR Sodium 140 Potassium 3.8 Chloride 102 Carbon Dioxide 33 H Anion Gap 5 L BUN 10 Creatinine 0.7 Random Glucose 98 Calcium 9.6 Troponin I 0.09 H C-Reactive Protein 1.7 H Cancelled 03/29/17 05:05 WBC RBC Hgb Hct MCV MCH MCHC RDW Plt Count MPV Neutrophils % Lymphocytes % Monocytes % Eosinophils % Basophils % ESR 19 Sodium Potassium Chloride Carbon Dioxide Anion Gap BUN Creatinine Random Glucose Calcium Troponin I C-Reactive Protein Active Medications Generic Name Dose Route Start Last Admin Trade Name Freq PRN Reason Stop Dose Admin Acetaminophen 1,000 mg 03/28/17 13:39 Tylenol - PO Q6H PRN FEVER OR PAIN Amlodipine Besylate 10 mg 03/27/17 10:00 03/29/17 09:23 Norvasc - PO 10 mg DAILY [facility] Administration Aspirin 81 mg 03/28/17 10:00 03/29/17 09:22 Asa - PO 81 mg DAILY [facility] Administration Atorvastatin Calcium 80 mg 03/28/17 21:52 Lipitor - PO HS [facility] Clopidogrel Bisulfate 75 mg 03/28/17 10:00 03/29/17 09:23 Plavix - PO 75 mg DAILY [facility] Administration Diltiazem HCl 300 mg 03/27/17 10:00 03/29/17 09:22 Cardizem Cd - PO 300 mg DAILY [facility] Administration Enoxaparin Sodium 100 mg 03/27/17 10:00 03/28/17 21:49 Lovenox - SQ 100 mg BID [facility] Administration Lisinopril 30 mg 03/29/17 11:30 03/29/17 13:50 Prinivil PO 30 mg DAILY [facility] Administration Metoprolol Tartrate 25 mg 03/27/17 10:00 03/29/17 09:22 Lopressor - PO 25 mg BID [facility] Administration Zolpidem Tartrate 10 mg 03/28/17 21:28 03/28/17 21:44 Ambien - PO 10 mg HS PRN Administration INSOMNIA ASSESSMENT/PLAN: 51 yo m w/ pmh HTN, HLD and borderline DM presented to the ED w/ a 2 day history of chest pain with radiation to the left shoulder and neck. He was found to have nonspecific T wave changes on EKG and an elevated troponin I. He was transferred to the ICU for further monitoring. Patient is for transfer to [facility] today for cardiac cath. Neuro -Patient is A&Ox3, no focal neurological deficits Cardiac -nonspecific t wave changes on EKG and troponemia -Troponin in .09 today -Patient is for cardiac cath at [facility] this afternoon FEN -no fluids indicated at this time -no electrolyte abnormalities -sodium controlled diet Dispo -for transfer to [facility] this afternoon per cardiology Problem List - Problems (1) Elevated troponin Code(s): R74.8 - ABNORMAL LEVELS OF OTHER SERUM ENZYMES (2) HLD (hyperlipidemia) Code(s): E78.5 - HYPERLIPIDEMIA, UNSPECIFIED (3) HTN (hypertension) Code(s): I10 - ESSENTIAL (PRIMARY) HYPERTENSION (4) History of borderline diabetes mellitus Code(s): Z87.898 - PERSONAL HISTORY OF OTHER SPECIFIED CONDITIONS (5) Acute electrocardiogram changes Code(s): R94.31 - ABNORMAL ELECTROCARDIOGRAM [ECG] [EKG] Visit type - Emergency Visit Emergency Visit: Yes ED Registration Date: 03/27/17 Care time: The patient presented to the Emergency Department on the above date and was hospitalized for further evaluation of their emergent condition. - New Patient This patient is new to me today: Yes Date on this admission: 03/29/17 - Critical Care Critical Care patient: Yes Total Critical Care Time (in minutes): 35 Critical Care Statement: The care of this patient involved high complexity decision making to prevent further life threatening deterioration of the patient 's condition and/or to evalute & treat vital organ system(s) failure or risk of failure.
[2017-03-29 15:29] VITALS: BP 140/84; PULSE 73; TEMP 98.5
== END 2017-03-29 15:43 | disposition short-term general hospital (02) | DRG 313 ==
LOC: JER 23:33 → JERBED 03-27 03:22 → JICU 03-27 06:11
PROVIDERS: ADMIT Internal Medicine; ATTEND Nurse Practitioner Acute Care
DX: R07.89 Other chest pain (principal); Z68.42 Body mass index [BMI] 45.0-49.9, adult; I10 Essential (primary) hypertension; E78.5 Hyperlipidemia, unspecified; R73.03 Prediabetes; K21.9 Gastro-esophageal reflux disease without esophagitis; E66.01 Morbid (severe) obesity due to excess calories; Z71.3 Dietary counseling and surveillance; R94.31 Abnormal electrocardiogram [ECG] [EKG]; R74.8 Abnormal levels of other serum enzymes; M94.0 Chondrocostal junction syndrome [Tietze]
CPT/HCPCS: 36415; 71020-TC; 80048; 80053; 80061; 82550; 82553; 83036; 83721; 83735; 84100; 84443; 84484; 85025; 85610; 85651; 86140; 90670; 93005; 93010; 93306-TC; 93971-TC; 99284-25

== ENCOUNTER 2017-07-08 00:48 | Observation (INO) | payer BC ==
--- NOTE | 2017-07-08 01:08 | PDOC ---
History of Present Illness - General History Source: Patient <Vamsi Lambert - Last Filed: 07/08/17 04:19> - General History Source: Patient Exam Limitations: No Limitations - History of Present Illness Initial Comments: 07/08/17 01:21 The patient is a 51 year old male with a significant PMH of HTN and small ND (2016) who presents to the emergency department with chest pain beginning approximately 14 hours ago. The patient describes the chest pain as beginning in the left sternal border and radiating across the left shoulder down the left arm. He reports that both rest and exertion do not alleviate his symptoms. The patient reports taking Aspirin at home for his symptoms. The patient reports compliance with his medications. The patient denies shortness of breath, headache and dizziness. Denies fever, chills, nausea, vomit, diarrhea and constipation. Denies dysuria, frequency, urgency and hematuria. Allergies: NKDA Past surgical history: None reported. Social history: Everyday smoker. No reported toxic habits. Cardiology: Dr. Bruner PCP: Dr. Dawn <Collin Parham - Last Filed: 07/08/17 06:28> - General Stated Complaint: CHEST PAIN Time Seen by Provider: 07/08/17 01:08 Past History - Past Medical History Anemia: No Asthma: No Cancer: No Cardiac Disorders: No CVA: No COPD: No CHF: No DVT: No Dementia: No Diabetes: No Dialysis: No GI Disorders: Yes (GERD) Disorders: No HTN: Yes Hypercholesterolemia: Yes Kidney Stones: No Liver Disease: No Psychiatric Problems: No Seizures: No Thyroid Disease: No Lung CA: No - Surgical History Abdominal Surgery: No Appendectomy: Yes Cardiac Surgery: No Cholecystectomy: No Lung Surgery: No Neurologic Surgery: No Orthopedic Surgery: Yes (RIGHT SHOILDER SURGERY 1985) - Immunization History Immunization Up to Date: Yes - Suicide/Smoking/Psychosocial Hx Smoking History: Never smoked Have you smoked in the past 12 months: No Hx Alcohol Use: No Drug/Substance Use Hx: No Substance Use Type: None Hx Substance Use Treatment: No <LizandroabbyVamsi - Last Filed: 07/08/17 04:19> <Collin Parham - Last Filed: 07/08/17 06:28> - Past Medical History Allergies/Adverse Reactions: Allergies Allergy/AdvReac Type Severity Reaction Status Date / Time peanut Allergy Severe Hives,SWELL Verified 03/26/17 23:53 ING tree nut [Tree Nut] Allergy Severe Hives,SWELL Verified 03/26/17 23:53 ING No Known Drug Allergies Allergy Verified 03/26/17 23:53 shellfish derived AdvReac Severe GOUT Verified 03/26/17 23:53 Home Medications: Ambulatory Orders Amlodipine Besylate [Norvasc -] 10 mg PO DAILY 05/25/14 Diltiazem Cd [Cardizem Cd -] 300 mg PO DAILY 05/25/14 Lisinopril [Prinivil] 30 mg PO DAILY 05/25/14 Simvastatin [Zocor -] 20 mg PO HS 05/30/14 Metoprolol Tartrate 25 mg PO BID 07/08/17 Review of Systems - Review of Systems Able to Perform ROS?: Yes Comments:: 07/08/17 01:22 CONSTITUTIONAL: Absent: fever, chills, diaphoresis, generalized weakness, malaise, loss of appetite HEENT: Absent: rhinorrhea, nasal congestion, throat pain, throat swelling, difficulty swallowing, mouth swelling, ear pain, eye pain, visual Changes CARDIOVASCULAR:(+) Left sided chest pain Absent:syncope, palpitations, irregular heart rate, lightheadedness, peripheral edema RESPIRATORY: Absent: cough, shortness of breath, dyspnea with exertion, orthopnea, wheezing, stridor, hemoptysis GASTROINTESTINAL: Absent: abdominal pain, abdominal distension, nausea, vomiting, diarrhea, constipation, melena, hematochezia GENITOURINARY: Absent: dysuria, frequency, urgency, hesitancy, hematuria, flank pain, genital pain MUSCULOSKELETAL: (+) LUE pain. Absent: myalgia, arthralgia, joint swelling SKIN: Absent: rash, itching, pallor HEMATOLOGIC/IMMUNOLOGIC: Absent: easy bleeding, easy bruising, lymphadenopathy, frequent infections ENDOCRINE: Absent: unexplained weight gain, unexplained weight loss, heat intolerance, cold intolerance NEUROLOGIC: Absent: headache, focal weakness or paresthesias, dizziness, unsteady gait, seizure, mental status changes, bladder or bowel incontinence PSYCHIATRIC: Absent: anxiety, depression, suicidal or homicidal ideation, hallucinations. <Collin Parham - Last Filed: 07/08/17 06:28> *Physical Exam - Vital Signs Last Vital Signs Temp Pulse Resp BP Pulse Ox 98.6 F 74 20 155/86 96 07/08/17 01:11 07/08/17 01:11 07/08/17 01:11 07/08/17 01:11 07/08/17 01:11 - Physical Exam Comments: 07/08/17 01:22 GENERAL: (+) Morbidly obese. Well developed, Well nourished. Awake and alert. No acute distress. HEENT: Normocephalic, atraumatic. PERRLA, EOMI. No conjunctival pallor. Sclera are non- icteric. Moist mucous membranes. Oropharynx is clear. NECK: Supple. Full ROM. No JVD. Carotid pulses 2+ and symmetric, without bruits. No thyromegaly. No lymphadenopathy. CARDIOVASCULAR: Regular rate and rhythm. No murmurs, rubs, or gallops. Distal pulses are 2+ and symmetric. PULMONARY: No evidence of respiratory distress. Lungs clear to auscultation bilaterally. No wheezing, rales or rhonchi. ABDOMINAL: Soft. Non-tender. Non-distended. No rebound or guarding. No organomegaly. Normoactive bowel sounds. MUSCULOSKELETAL Normal range of motion at all joints. No bony deformities or tenderness. No CVA tenderness. EXTREMITIES: No cyanosis. No clubbing. No edema. No calf tenderness. SKIN: Warm and dry. Normal capillary refill. No rashes. No jaundice. NEUROLOGICAL: Alert, awake, appropriate. Cranial nerves 2-12 intact. No deficits to light touch and temperature in face, upper extremities and lower extremities. No motor deficits in the in face, upper extremities and lower extremities. Normoreflexic in the upper and lower extremities. Normal speech. Toes are downgoing bilaterally. Gait is normal without ataxia. PSYCHIATRIC: Cooperative. Good eye contact. Appropriate mood and affect. <Collin Parham - Last Filed: 07/08/17 06:28> Heart Score/ECG Review - History History: Moderately suspicious - Electrocardiogram EKG: Non specific repolarization disturbance - Age Age: 45-65 - Risk Factors Risk Factors Heart Score: Yes Hx Hypercholesterolemia, Yes Hx Hypertension, Yes Hx Obesity Based on the list above the patient has:: >/=3 risk factors or Hx atherosclerotic disease - Troponin Troponin: 1-3x normal limit - Score Heart Score - Total: 6 <Vamsi Lambert - Last Filed: 07/08/17 04:19> #1 07/08/17 01:22 Vent rate 76 bpm Normal sinus rhythm Minimal voltage criteria for LVH, may be normal variant T wave abnormality, consider lateral ischemia Abnormal ECG <Collin Parham - Last Filed: 07/08/17 06:28> ED Treatment Course - LABORATORY CBC & Chemistry Diagram: 07/08/17 01:23 07/08/17 01:23 <Vamsi Lambert - Last Filed: 07/08/17 04:19> - LABORATORY CBC & Chemistry Diagram: 07/08/17 01:23 07/08/17 01:23 <Collin Parham - Last Filed: 07/08/17 06:28> Medical Decision Making - Medical Decision Making 07/08/17 02:58 Dr. Lambert: The scribe's documentation has been prepared under my direction and personally reviewed by me in its entirery. I confirm that the note above accurately reflects all work, treatment, procedures, and medical decision making performed by me. Pt found to have T-wave inversion to V4-V6. Troponin is 0.08. Pt states pain has improved, but he still has some pain.. Pt to be admitted to Tele. inpt <Vamsi Lambert - Last Filed: 07/08/17 04:19> *DC/Admit/Observation/Transfer - Discharge Dispostion Admit: Yes <Vamsi Lambert - Last Filed: 07/08/17 04:19> - Attestations Scribe Attestion: 07/08/17 01:24 Documentation prepared by Collin Parham, acting as medical billing and coding instructor for Vamsi Lambert DO. <Collin Parham - Last Filed: 07/08/17 06:28> Diagnosis at time of Disposition: T wave inversion in electrocardiogram, Non-ST elevation (NSTEMI) myocardial infarction
[2017-07-08] MEDS ORDERED: NITROGLYCERIN 2% OINTMENT - 1GM PACKET TD ONE ×2 (01:14→01:40)
[2017-07-08] MEDS ORDERED: METOPROLOL TARTRATE 5 MG/5 ML VIAL IVPUSH ONE (01:15)
[2017-07-08 01:33] LABS: BASOPHIL 1.2 % (0-2.0); EOSINOPHIL 1.4 % (0-4.5); MCH 30.8 pg (25.7-33.7); MCHC 34.1 g/dl (32.0-35.9); MEAN CELL VOLUME 90.3 fl (80-96); MEAN PLT VOLUME 8.7 fl (7.5-11.1); NEUTROPHILS 62.6 % (42.8-82.8); PLATELET COUNT 239 K/MM3 (134-434); RDW 12.4 % (11.9-15.9); WHITE BLOOD COUNT 13.3 K/mm3 (4.0-10.0)
[2017-07-08] MEDS ORDERED: METOPROLOL TARTRATE 5 MG/5 ML VIAL ONE (01:41)
[2017-07-08 01:42] LABS: INR 1.1 (0.82-1.09); PROTHROMBIN TIME (PATIENT) 12.4 SEC (9.98-11.88)
[2017-07-08 01:54] LABS: ALBUMIN 3.6 g/dl (3.4-5.0); ANION GAP 8 (8-16); BILIRUBIN,TOTAL 0.2 mg/dL (0.2-1.0); CALCIUM 8.6 mg/dL (8.5-10.1); CO2 28 mmol/L (21-32); CREATININE 1.2 mg/dL (0.7-1.3); GLUCOSE,RANDOM 153 mg/dL (74-106); SGOT/AST 16 U/L (15-37); SGPT/ALT 39 U/L (12-78); TOT PROT 6.8 g/dl (6.4-8.2)
[2017-07-08 01:56] LABS: ALK PHOS 134 U/L (45-117); CPK 166 IU/L (39-308); TROPONIN I 0.08 ng/ml (0.00-0.05)
[2017-07-08] MEDS ORDERED: POTASSIUM CHLORIDE TABS 20 MEQ TABLET.ER (FP) PO ONE ×2 (02:51→03:17)
[2017-07-08] MEDS ORDERED: ONDANSETRON 4 MG/2 ML VIAL IVPUSH STA (02:57)
[2017-07-08] MEDS ORDERED: morphine CARPU-JECT 2 MG/1 ML DISP.SYRIN IVPUSH ONE (02:57)
[2017-07-08] MEDS ORDERED: morphine CARPU-JECT 8 MG/1 ML DISP.SYRIN ONE (03:16)
[2017-07-08] MEDS ORDERED: ONDANSETRON 4 MG/2 ML VIAL ONE (03:17)
[2017-07-08 03:52] LABS: URINE APPEARANCE CLEAR; URINE BILIRUBIN NEGATIVE (NEGATIVE); URINE BLOOD NEGATIVE (NEGATIVE); URINE COLOR LTYELLOW; URINE GLUCOSE (UA) NEGATIVE (NEGATIVE); URINE KETONE NEGATIVE (NEGATIVE); URINE NITRITE NEGATIVE (NEGATIVE); URINE PROTEIN NEGATIVE (NEGATIVE); URINE UROBILINOGEN NEGATIVE mg/dL (0.2-1.0)
[2017-07-08 08:37] LABS: C-REACTIVE PROTEIN 2.1 MG/DL (0.00-0.3)
[2017-07-08] MEDS ORDERED: ONDANSETRON 4 MG/2 ML VIAL IVPUSH PRN (08:55)
[2017-07-08] MEDS ORDERED: POTASSIUM CHLORIDE 20 MEQ PREMIX IVPB 100 ML IVPB ONE (09:07)
--- NOTE | 2017-07-08 09:09 | HP ---
CHIEF COMPLAINT:chest pain. PCP: HISTORY OF PRESENT ILLNESS: 51 yo M with significant PMHx of [place](03/2017), HTN, HLD and gout presents with one day history of chest pain. He describes 6/10 left chest and shoulder pain that radiates to his scapula and down left arm. Pain is sharp shooting pain that last for approx 5 min. and resolves spontaneously. Aggravated by movement and palpation and relieved by rest. No related to activity and no diaphoresis, nausea, vomiting, palpitations or light headedness. It is associated with some neck numbness. He is anxoius because of the [place] he suffered in May of this year. He took two baby aspirin prior to coming to ED and in ED was given nitro paste with minimal releif of symptoms. Pain was improved with morphine. Denies VERMA, SOB, abdominal pain, fever, chills, recent illness, sick contacts, nausea or vomiting. ER course was notable for: (1)trops 0.8 initially which is his baseline. (2)EKG shows non- specific T wave changes in lateral leads. (3)Hypokalemia seen of CMP Recent Travel:Denies PAST MEDICAL HISTORY:[place](03/2017), HTN, HLD and gout PAST SURGICAL HISTORY: knee repair x2, shoulder repair, and Social History: Smoking:never Alcohol:social Drugs: denies Family History:Mother (HTN, HLD) Allergies peanut Allergy (Severe, Verified 03/26/17 23:53) Hives,SWELLING tree nut [Tree Nut] Allergy (Severe, Verified 03/26/17 23:53) Hives,SWELLING No Known Drug Allergies Allergy (Verified 03/26/17 23:53) shellfish derived Adverse Reaction (Severe, Verified 03/26/17 23:53) GOUT HOME MEDICATIONS: Home Medications Medication Instructions Recorded Amlodipine Besylate [Norvasc -] 10 mg PO DAILY 05/25/14 Diltiazem Cd [Cardizem Cd -] 300 mg PO DAILY 05/25/14 Lisinopril [Prinivil] 30 mg PO DAILY 05/25/14 Simvastatin [Zocor -] 20 mg PO HS 05/30/14 Metoprolol Tartrate 25 mg PO BID 07/08/17 REVIEW OF SYSTEMS CONSTITUTIONAL: Absent: fever, chills, diaphoresis, generalized weakness, malaise, loss of appetite, weight change HEENT: Absent: rhinorrhea, nasal congestion, throat pain, throat swelling, difficulty swallowing, mouth swelling, ear pain, eye pain, visual changes CARDIOVASCULAR: chest pain Absent: , syncope, palpitations, irregular heart rate, lightheadedness, peripheral edema RESPIRATORY: Absent: cough, shortness of breath, dyspnea with exertion, orthopnea, wheezing, stridor, hemoptysis GASTROINTESTINAL: Absent: abdominal pain, abdominal distension, nausea, vomiting, diarrhea, constipation, melena, hematochezia GENITOURINARY: Absent: dysuria, frequency, urgency, hesitancy, hematuria, flank pain, genital pain MUSCULOSKELETAL: back pain, neck pain Absent: myalgia, arthralgia, joint swelling, SKIN: Absent: rash, itching, pallor HEMATOLOGIC/IMMUNOLOGIC: Absent: easy bleeding, easy bruising, lymphadenopathy, frequent infections ENDOCRINE: Absent: unexplained weight gain, unexplained weight loss, heat intolerance, cold intolerance NEUROLOGIC: Absent: headache, focal weakness or paresthesias, dizziness, unsteady gait, seizure, mental status changes, bladder or bowel incontinence PSYCHIATRIC: Absent: anxiety, depression, suicidal or homicidal ideation, hallucinations. PHYSICAL EXAMINATION Vital Signs - 24 hr 07/08/17 07/08/17 07/08/17 03:31 07:18 07:31 Temperature 98.2 F Pulse Rate 66 Pulse Rate [ 66 68 Apical] Respiratory 22 18 Rate Blood Pressure 138/84 120/79 [Left Arm] O2 Sat by Pulse 94 L 96 98 Oximetry (%) GENERAL: AAOx3, NAD HEAD: NC?AT EYES: Pupils equal, round and reactive to light, extraocular movements intact, sclera anicteric, conjunctiva clear. No lid lag. EARS, NOSE, THROAT: Ears normal, nares patent, oropharynx clear without exudates. Moist mucous membranes. NECK: Normal range of motion, supple without lymphadenopathy, JVD, or masses. LUNGS: Breath sounds equal, clear to auscultation bilaterally. No wheezes, and no crackles. No accessory muscle use. HEART: Regular rate and rhythm, normal S1 and S2 without murmur, rub or gallop. ABDOMEN: Soft, nontender, not distended, normoactive bowel sounds, no guarding, no rebound, no masses. No hepatomegaly or splenomegaly. MUSCULOSKELETAL: Normal range of motion at all joints. No bony deformities or tenderness. No CVA tenderness. UPPER EXTREMITIES: 2+ pulses, warm, well-perfused. No cyanosis. No clubbing. No peripheral edema. LOWER EXTREMITIES: 2+ pulses, warm, well-perfused. No calf tenderness. No peripheral edema. NEUROLOGICAL: Cranial nerves II-XII intact. Normal speech. Normal gait. PSYCHIATRIC: Cooperative. Good eye contact. Appropriate mood and affect. SKIN: Warm, dry, normal turgor, no rashes or lesions noted, normal capillary refill. Laboratory Results - last 24 hr 07/08/17 03:45 Urine Color Ltyellow Urine Appearance Clear Urine pH 5.0 Ur Specific [place] 1.021 Urine Protein Negative Urine Glucose (UA) Negative Urine Ketones Negative Urine Blood Negative Urine Nitrite Negative Urine Bilirubin Negative Urine Urobilinogen Negative ASSESSMENT/PLAN: 51 yo M with significant PMHx of [place], HTN, HLD and gout presents with one day history of chest pain placed on tele obs to r/o ACS. Problem List - Problem (1) Chest pain Assessment/Plan: * Given cardiac heart score will admit to tele obs to r/o [place] * First set of trops(-) will repeat Q6H x2 * Dr. Starr for cardiology consult * Morphine 2mg Q4HPRN for pain * Supplemental O2 PRN * (2) Hypokalemia Assessment/Plan: * Will replace with IV potassium * Repeat BMP in 6hrs. (3) HLD (hyperlipidemia) Assessment/Plan: * Continue Statin (4) HTN (hypertension) Assessment/Plan: * Will continue * Amlodipine Besylate (Norvasc -) 10 mg PO DAILY * Diltiazem HCl (Cardizem Cd -) 300 mg PO * Lisinopril (Prinivil) 30 mg PO DAILY * Metoprolol Tartrate (Lopressor -) 25 mg PO BID FARHAT (5) DVT prophylaxis Assessment/Plan: * Heparin SQ 5000 units TID. Visit type - Emergency Visit Emergency Visit: Yes ED Registration Date: 07/08/17 Care time: The patient presented to the Emergency Department on the above date and was hospitalized for further evaluation of their emergent condition. - New Patient This patient is new to me today: Yes Date on this admission: 07/08/17 - Critical Care Critical Care patient: No
[2017-07-08] MEDS ORDERED: morphine CARPU-JECT 10 MG/1 ML DISP.SYRIN IVPUSH PRN (09:10)
[2017-07-08 09:11] LABS: URINE LEUK ESTERASE Negative (NEGATIVE)
[2017-07-08] MEDS: HEPARIN NA (PORCINE) 5,000 UNITS/ML 1ML VIAL SQ SCH ×3 (09:15→21:35)
[2017-07-08] MEDS: amLODIPine BESYLATE 10 MG TABLET (FP) PO SCH (09:16)
[2017-07-08] MEDS: METOPROLOL TARTRATE 25 MG TABLET (FP) PO SCH ×2 (09:16→21:35)
[2017-07-08] MEDS ORDERED: amLODIPine BESYLATE 5 MG TABLET (FP) ONE (09:17)
[2017-07-08] MEDS: LISINOPRIL 20 MG TABLET (FP) PO SCH (09:17)
[2017-07-08] MEDS ORDERED: LISINOPRIL 20 MG TABLET (FP) ONE (09:17)
[2017-07-08] MEDS ORDERED: LISINOPRIL 5 MG TABLET (FP) ONE (09:18)
[2017-07-08] MEDS ORDERED: HEPARIN NA (PORCINE) 5,000 UNITS/ML 1ML VIAL ONE (09:18)
[2017-07-08] MEDS ORDERED: METOPROLOL TARTRATE 25 MG TABLET (FP) ONE (09:18)
[2017-07-08] MEDS ORDERED: KCL 10 MEQ IVPB 200 ML IVPB ONE (09:18)
--- NOTE | 2017-07-08 10:47 | PN ---
Teaching Attending Note Name of Resident: Jose Montana ATTENDING PHYSICIAN STATEMENT I saw and evaluated the patient. I reviewed the resident's note and discussed the case with the resident. I agree with the resident's findings and plan as documented. SUBJECTIVE: This is a 51 year old man with a history of HTN, hyperlipidemia, CAD , [place] (03/2017), gout who comes to the ER complaining of chest pain. He has pressure in the center of his chest that radiates up to the left side of his neck. It is worse when he turns his head and when he lifts his left arm. He denies SOB, palpitations, nausea, diaphoresis. The pain has been present for the last 24 hours. OBJECTIVE: Vital Signs Period Temp Pulse Resp BP Sys/Crawford Pulse Ox Last 24 Hr 98.2 F-98.6 F 66-74 18-22 120-155/79-86 94-98 HEART: S1S2, RRR LUNGS: Clear ABDOMEN: Obese, non-tender, non-distended, normal BS EXTREMITIES: No edema Home Medications Medication Instructions Recorded Amlodipine Besylate [Norvasc -] 10 mg PO DAILY 05/25/14 Diltiazem Cd [Cardizem Cd -] 300 mg PO DAILY 05/25/14 Lisinopril [Prinivil] 30 mg PO DAILY 05/25/14 Simvastatin [Zocor -] 20 mg PO HS 05/30/14 Metoprolol Tartrate 25 mg PO BID 07/08/17 Laboratory Tests 07/08/17 07/08/17 07/08/17 01:23 01:23 01:23 WBC 13.3 H RBC 4.11 Hgb 12.7 Hct 37.1 MCV 90.3 MCH 30.8 MCHC 34.1 RDW 12.4 Plt Count 239 MPV 8.7 Neutrophils % 62.6 Lymphocytes % 26.0 Monocytes % 8.8 Eosinophils % 1.4 Basophils % 1.2 PT with INR 12.40 H INR 1.10 Sodium Potassium Chloride Carbon Dioxide Anion Gap BUN Creatinine Creat Clearance w eGFR Random Glucose Calcium Magnesium Total Bilirubin AST ALT Alkaline Phosphatase Creatine Kinase Creatine Kinase Index CK-MB (CK-2) Troponin I C-Reactive Protein B-Natriuretic Peptide Total Protein Albumin Urine Color Urine Appearance Urine pH Ur Specific [place] Urine Protein Urine Glucose (UA) Urine Ketones Urine Blood Urine Nitrite Urine Bilirubin Urine Urobilinogen Blood Type O POSITIVE Antibody Screen Negative 07/08/17 07/08/17 01:23 03:45 WBC RBC Hgb Hct MCV MCH MCHC RDW Plt Count MPV Neutrophils % Lymphocytes % Monocytes % Eosinophils % Basophils % PT with INR INR Sodium 140 Potassium 3.2 L Chloride 104 Carbon Dioxide 28 Anion Gap 8 BUN 18 D Creatinine 1.2 D Creat Clearance w eGFR > 60 Random Glucose 153 H D Calcium 8.6 Magnesium 2.0 Total Bilirubin 0.2 D AST 16 D ALT 39 Alkaline Phosphatase 134 H Creatine Kinase 166 Creatine Kinase Index CK-MB (CK-2) < 1.000 Troponin I 0.08 H C-Reactive Protein 2.1 H D B-Natriuretic Peptide 63.62 Total Protein 6.8 Albumin 3.6 Urine Color Ltyellow Urine Appearance Clear Urine pH 5.0 Ur Specific [place] 1.021 Urine Protein Negative Urine Glucose (UA) Negative Urine Ketones Negative Urine Blood Negative Urine Nitrite Negative Urine Bilirubin Negative Urine Urobilinogen Negative Blood Type Antibody Screen ASSESSMENT AND PLAN: This is a 51 year old man with a history of HTN, hyperlipidemia, CAD, [place] (03/2017 ), gout who presented to the ER with chest pressure radiating to the left side of his neck. 1. Chest pain, CAD with CT in 03/2017 - Atypical - appears musculoskeletal - Observe on telemetry - Serial troponins - Aspirin - Continue Lopressor, Zocor - Cardiology evaluation 2. Hypokalemia - Replete potassium 3. Hyperlipidemia - Continue Zocor 4. Hypertension - Continue Norvasc, Lopressor, Lisinopril 5. History of gout 6. Morbid obesity with BMI 43.6
[2017-07-08 10:55] LABS: TROPONIN I 0.08 ng/ml (0.00-0.05)
[2017-07-08 11:12] LABS: ANION GAP 7 (8-16); CALCIUM 8.6 mg/dL (8.5-10.1); CO2 29 mmol/L (21-32); CPK 137 IU/L (39-308); CREATININE 0.9 mg/dL (0.7-1.3); GLUCOSE,RANDOM 120 mg/dL (74-106)
[2017-07-08] MEDS ORDERED: ASPIRIN 81 MG CHEWABLE TABLETS PO ONE (11:15)
[2017-07-08 11:29] VITALS: BMI 41.1
[2017-07-08] MEDS ORDERED: POTASSIUM CHLORIDE 20 MEQ in DEXTROSE 5%-WATER - 250 ML IVPB ONE (12:00)
--- NOTE | 2017-07-08 12:10 | EKG ---
Test Reason : Blood Pressure : / mmHG Vent. Rate : 066 BPM Atrial Rate : 066 BPM P-R Int : 172 ms QRS Dur : 098 ms QT Int : 430 ms P-R-T Axes : 035 016 057 degrees QTc Int : 450 ms NORMAL SINUS RHYTHM MINIMAL VOLTAGE CRITERIA FOR LVH, MAY BE NORMAL VARIANT NONSPECIFIC T WAVE ABNORMALITY ABNORMAL ECG WHEN COMPARED WITH ECG OF 08-JUL-2017 00:56, NO SIGNIFICANT CHANGE WAS FOUND Confirmed by ANA GREER, GREYSON ([id number]) on 07/08/2017 12:10:00 PM Referred By: Confirmed By:GREYSON PEREZ MD
--- NOTE | 2017-07-08 12:19 | EKG ---
Test Reason : Blood Pressure : / mmHG Vent. Rate : 076 BPM Atrial Rate : 076 BPM P-R Int : 174 ms QRS Dur : 102 ms QT Int : 400 ms P-R-T Axes : 036 029 054 degrees QTc Int : 450 ms NORMAL SINUS RHYTHM MINIMAL VOLTAGE CRITERIA FOR LVH, MAY BE NORMAL VARIANT T WAVE ABNORMALITY, CONSIDER LATERAL ISCHEMIA ABNORMAL ECG WHEN COMPARED WITH ECG OF 28-MAR-2017 11:46, NO SIGNIFICANT CHANGE WAS FOUND Confirmed by ANA GREER, GREYSON ([id number]) on 07/08/2017 12:19:22 PM Referred By: Confirmed By:GREYSON PEREZ MD
--- NOTE | 2017-07-08 16:13 | CON.CARD ---
Cardiology Consult (text) - Consultation Consultation Note: CC: cp 51 yo with h/o new cardiomyopathy diagnosed 03/2017, HTN, hl, obesity who p/w recurrent cp. left sided CP similar to pain described during summer admit. Had cardiac cath at that time which was negative for cad. States onset of discomfort 2 days ago. Discomfort occurs only with certain movements and in certain postions. Patient also developed new associated numbness/pain over left neck and left shoulder which prompted him to seek evaluation. 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 maldonado. no orthopnea, pnd, le edema, sob, claudication, bleeding. no f/c/s, n/v/d, cough, congestion, recent uri, visual disturbances, h/a or rash. Followed by Dr. Maldonado pmhx/pshx: per hi Social hx: Never smoked Fam hx: no cad ros: per hpi Ambulatory Orders Amlodipine Besylate [Norvasc -] 10 mg PO DAILY 05/25/14 Diltiazem Cd [Cardizem Cd -] 300 mg PO DAILY 05/25/14 Lisinopril [Prinivil] 30 mg PO DAILY 05/25/14 Simvastatin [Zocor -] 20 mg PO HS 05/30/14 Metoprolol Tartrate 25 mg PO BID 07/08/17 Current Medications Amlodipine Besylate (Norvasc -) 10 mg PO DAILY [facility] Last Admin: 07/08/17 09:16 Dose: 10 mg Aspirin (Ecotrin -) 81 mg PO DAILY [facility] Atorvastatin Calcium (Lipitor -) 10 mg PO HS [facility] Diltiazem HCl (Cardizem Cd -) 300 mg PO DAILY [facility] Last Admin: 07/08/17 10:10 Dose: 300 mg Heparin Sodium (Porcine) (Heparin -) 5,000 unit SQ TID [facility] Last Admin: 07/08/17 13:41 Dose: 5,000 unit Lisinopril (Prinivil) 30 mg PO DAILY [facility] Last Admin: 07/08/17 09:17 Dose: 30 mg Metoprolol Tartrate (Lopressor -) 25 mg PO BID [facility] Last Admin: 07/08/17 09:16 Dose: 25 mg Morphine Sulfate (Morphine Injection -) 2 mg IVPUSH Q4H PRN PRN Reason: PAIN Ondansetron HCl (Zofran Injection) 4 mg IVPUSH Q6H PRN PRN Reason: NAUSEA Vital Signs - 24 hr 07/08/17 07/08/17 07/08/17 01:11 01:54 02:16 Temperature 98.6 F Pulse Rate 74 74 Pulse Rate [ 67 Apical] Respiratory 20 22 Rate Blood Pressure 155/86 155/86 Blood Pressure 137/82 [Left Arm] O2 Sat by Pulse 96 96 Oximetry (%) 07/08/17 07/08/17 07/08/17 03:31 07:18 07:31 Temperature 98.2 F Pulse Rate 66 Pulse Rate [ 66 68 Apical] Respiratory 22 18 Rate Blood Pressure Blood Pressure 138/84 120/79 [Left Arm] O2 Sat by Pulse 94 L 96 98 Oximetry (%) 07/08/17 07/08/17 11:00 12:00 Temperature 98.6 F Pulse Rate 58 L 63 Pulse Rate [ Apical] Respiratory 18 23 Rate Blood Pressure 150/92 150/92 Blood Pressure [Left Arm] O2 Sat by Pulse Oximetry (%) Intake & Output 07/06/17 07/07/17 07/08/17 07/09/17 07:59 07:59 07:59 07:59 Intake Total 500 Balance 500 Weight 295 lb 295 lb nad, calm jvd flat, neck supple ctab, nl effort rrr nl s1, s2 no mrg/rub. ND PMI. pain not reproducible to palp. + bs soft nt nd ext without e/c/c + dp/pt aaox3 no jaundice, diaphoresis no carotid bruits Laboratory Tests 07/08/17 07/08/17 07/08/17 01:23 01:23 01:23 WBC 13.3 H Hgb 12.7 Plt Count 239 ESR INR 1.10 Magnesium 2.0 Total Bilirubin 0.2 D AST 16 D ALT 39 Alkaline Phosphatase 134 H Creatine Kinase 166 Troponin I 0.08 H C-Reactive Protein 2.1 H D B-Natriuretic Peptide 63.62 Albumin 3.6 07/08/17 07/08/17 07/08/17 10:15 10:15 20:15 WBC Hgb Plt Count ESR 0 INR Magnesium Total Bilirubin AST ALT Alkaline Phosphatase Creatine Kinase Troponin I 0.08 H 0.08 H C-Reactive Protein B-Natriuretic Peptide Albumin [facility] 03/22: mild D1 changes. EDP 15. EF 55%. mild HK of posterobasal, anterobasal , anterolateral echols Isabella stress MPI 02/2014: no ischemia Echo 04/22: 1. The left ventricle is moderately dilated. 2. Overall left ventricular systolic function is mildly impaired (globally), with a visually estimated EF of 50 %. Goss's EF calculation is 48%. 3. Sigmoid shaped septum with focal hypertrophy of the basal septum. The remaining wall thickness is normal. No systolic anterior motion of mitral valve or LVOT obstruction present on this study. 4. Normal LA pressure. 5. The right ventricle is mildly enlarged. 6. The right ventricular systolic function is normal. 7. Left atrium is normal size by volume. 8. The right atrium is mildly enlarged. 9. Aortic valve is trileaflet and is mildly thickened. 10. Mild tricuspid regurgitation present. 11. Unable to estimate RVSP due to inadequate TR jet spectral doppler profile. 12. Moderate pulmonic regurgitation. 13. There is no pericardial effusion. Echo 03/22 (): mild LVE, mild-mod decr LVEF. nl RV size, mild RV hypo. nl LA. mild MR/TR. [id number] PI. pericardium not described, no effusion mentioned. Echo 02/2014: normal LV/RV size and function, no sig valv abn. ekg: nsr, lvh. lateral st-twave abnormality. non-specific t wave flattening in limb leads. similar to priors (subtle variations in degree of severity) tele: sr/sb 51 yo with h/o new cardiomyopathy diagnosed 03/2017, HTN, hl, obesity who p/w recurrent cp. CP - atypical symptoms. recent cath without significant cad. ce's neg x 3 and ekg stable from priors. no need for further ischemic work up - patient with recent concern for pericarditis. s/p recent nsaid course. inflammatory markers here equivocal, will repeat. Echo to assess for effusion - telemetry monitoring non-ischemic cardiomyopathy - recent diagnosis, ongoing work up. - con't bb, acei. ccb have been necessary for mgm't of htn in past, currently being weaned as outpatient. - euvolemic - repeat echo as mentioned. htn - con't home meds hl, - con't statin
[2017-07-08] MEDS ORDERED: ATORVASTATIN CA 10 MG TABLET (FP) PO SCH (22:00)
[2017-07-09] MEDS ORDERED: morphine CARPU-JECT 2 MG/1 ML DISP.SYRIN ONE (02:25)
[2017-07-09] MEDS: HEPARIN NA (PORCINE) 5,000 UNITS/ML 1ML VIAL SQ SCH (05:21)
[2017-07-09 06:03] LABS: BASOPHIL 0.5 % (0-2.0); EOSINOPHIL 1.8 % (0-4.5); MCH 30.6 pg (25.7-33.7); MEAN CELL VOLUME 89.9 fl (80-96); MEAN PLT VOLUME 9.1 fl (7.5-11.1); NEUTROPHILS 60.9 % (42.8-82.8); PLATELET COUNT 232 K/MM3 (134-434); RDW 12.2 % (11.9-15.9); WHITE BLOOD COUNT 11.3 K/mm3 (4.0-10.0)
[2017-07-09 06:32] LABS: ALBUMIN 3.3 g/dl (3.4-5.0); ANION GAP 9 (8-16); BILIRUBIN,TOTAL 0.6 mg/dL (0.2-1.0); CALCIUM 8.6 mg/dL (8.5-10.1); CO2 26 mmol/L (21-32); CREATININE 0.8 mg/dL (0.7-1.3); GLUCOSE,RANDOM 97 mg/dL (74-106); MAGNESIUM 2.3 mg/dL (1.8-2.4); PHOSPHOROUS 3.2 mg/dL (2.5-4.9); SGOT/AST 15 U/L (15-37); SGPT/ALT 39 U/L (12-78); TOT PROT 6.4 g/dl (6.4-8.2)
[2017-07-09 06:33] LABS: ALK PHOS 109 U/L (45-117)
[2017-07-09 08:04] LABS: C-REACTIVE PROTEIN 2.2 MG/DL (0.00-0.3)
[2017-07-09] MEDS ORDERED: ASPIRIN COATED 81 MG TABLET.EC PO SCH (10:00)
--- NOTE | 2017-07-09 10:27 | DS ---
Physical Exam: SUBJECTIVE: Patient seen and examined sitting on edge of bed. Has tenderness over mid upper sternum going up to the left shoulder. OBJECTIVE: Vital Signs Period Temp Pulse Resp BP Sys/Crawford Pulse Ox Last 24 Hr 98.6 F-99.5 F 58-73 16-23 109-150/47-92 98 PHYSICAL EXAM GENERAL: The patient is awake, alert, and fully oriented, in no acute distress. LUNGS: Breath sounds equal, clear to auscultation bilaterally, no wheezes, no crackles, no accessory muscle use. HEART: Regular rate and rhythm, S1, S2 without murmur, rub or gallop. ABDOMEN: Soft, nontender, nondistended, normoactive bowel sounds, no guarding, no rebound, EXTREMITIES: 2+ pulses, warm, well-perfused, no edema. NEUROLOGICAL: Cranial nerves II through XII grossly intact. Normal speech, moves all extremities freely. PSYCH: Normal mood, normal affect. SKIN: Warm, dry, normal turgor LABS Laboratory Results - last 24 hr 07/08/17 07/08/17 07/08/17 03:45 10:15 10:15 WBC RBC Hgb Hct MCV MCH MCHC RDW Plt Count MPV Neutrophils % Lymphocytes % Monocytes % Eosinophils % Basophils % ESR 0 Sodium 141 Potassium 3.9 D Chloride 105 Carbon Dioxide 29 Anion Gap 7 L BUN 16 Creatinine 0.9 D Creat Clearance w eGFR Random Glucose 120 H D Calcium 8.6 Phosphorus Magnesium Total Bilirubin AST ALT Alkaline Phosphatase Creatine Kinase 137 Troponin I 0.08 H C-Reactive Protein Total Protein Albumin Urine Color Ltyellow Urine Appearance Clear Urine pH 5.0 Ur Specific [place] 1.021 Urine Protein Negative Urine Glucose (UA) Negative Urine Ketones Negative Urine Blood Negative Urine Nitrite Negative Urine Bilirubin Negative Urine Urobilinogen Negative Ur Leukocyte Esterase Negative 07/08/17 07/09/17 07/09/17 20:15 05:50 05:50 WBC 11.3 H RBC 3.93 L Hgb 12.0 Hct 35.3 L MCV 89.9 MCH 30.6 MCHC 34.0 RDW 12.2 Plt Count 232 MPV 9.1 Neutrophils % 60.9 Lymphocytes % 27.0 Monocytes % 9.8 Eosinophils % 1.8 Basophils % 0.5 ESR Sodium 140 Potassium 3.9 Chloride 105 Carbon Dioxide 26 Anion Gap 9 BUN 10 D Creatinine 0.8 Creat Clearance w eGFR > 60 Random Glucose 97 Calcium 8.6 Phosphorus 3.2 Magnesium 2.3 Total Bilirubin 0.6 D AST 15 ALT 39 Alkaline Phosphatase 109 Creatine Kinase Troponin I 0.08 H C-Reactive Protein 2.2 H D Total Protein 6.4 Albumin 3.3 L Urine Color Urine Appearance Urine pH Ur Specific [place] Urine Protein Urine Glucose (UA) Urine Ketones Urine Blood Urine Nitrite Urine Bilirubin Urine Urobilinogen Ur Leukocyte Esterase 07/09/17 07:30 WBC RBC Hgb Hct MCV MCH MCHC RDW Plt Count MPV Neutrophils % Lymphocytes % Monocytes % Eosinophils % Basophils % ESR Sodium Potassium Chloride Carbon Dioxide Anion Gap BUN Creatinine Creat Clearance w eGFR Random Glucose Calcium Phosphorus Magnesium Total Bilirubin AST ALT Alkaline Phosphatase Creatine Kinase Troponin I C-Reactive Protein Cancelled Total Protein Albumin Urine Color Urine Appearance Urine pH Ur Specific [place] Urine Protein Urine Glucose (UA) Urine Ketones Urine Blood Urine Nitrite Urine Bilirubin Urine Urobilinogen Ur Leukocyte Esterase HOSPITAL COURSE: Date of Admission:07/08/17 Date of Discharge: 07/09/17 51 year old man with a history of HTN, HLD, CAD, [place] (03/2017), gout who presented to the ER with chest pressure radiating to the left side of his neck. Atypical chest pain - atypical presentation, appears musculoskeletal - flat-trending troponins 0.08-->0.08-->0.08 - no events on telemetry - Echo:LV normal; RV normal; mild MR; mild TR; RSVP 30-40mmHg; mild PI - continue metoprolol, cardizem, Lipitor, ASA 2. Hypokalemia - Repleted potassium 3. Hyperlipidemia - Continued Lipitor 4. Hypertension - Continued amlodipine, metoprolol, lisinopril 5. History of gout 6. Morbid obesity with BMI 43.6 Patient has a 3:30pm appointment today with his account financial manager, Dr. Bruner. Minutes to complete discharge: 35 Discharge Summary Reason For Visit: NSTEMI T WAVE INVERSION IN EKG Current Active Problems Chest pain (Acute) Hypokalemia (Acute) Non-ST elevation (NSTEMI) myocardial infarction (Acute) T wave inversion in electrocardiogram (Acute) Condition: Improved - Instructions Diet, Activity, Other Instructions: You have a 3:30pm appointment TODAY with Dr. Bruner. Disposition: HOME - Home Medications Comprehensive Discharge Medication List: Ambulatory Orders Amlodipine Besylate [Norvasc -] 10 mg PO DAILY 05/25/14 Diltiazem Cd [Cardizem Cd -] 300 mg PO DAILY 05/25/14 Lisinopril [Prinivil] 30 mg PO DAILY 05/25/14 Simvastatin [Zocor -] 20 mg PO HS 05/30/14 Metoprolol Tartrate 25 mg PO BID 07/08/17 This patient is new to me today: Yes Date on this admission: 07/09/17 Emergency Visit: Yes ED Registration Date: 07/08/17 Care time: The patient presented to the Emergency Department on the above date and was hospitalized for further evaluation of their emergent condition. Critical Care patient: No - Discharge Referral Referred to [facility] No
[2017-07-09 10:47] VITALS: TEMP 98.9
[2017-07-09] MEDS ORDERED: PT OWN MED DRAWER 7, Y5N ONE (10:53)
[2017-07-09] MEDS: METOPROLOL TARTRATE 25 MG TABLET (FP) PO SCH (10:55)
[2017-07-09] MEDS: amLODIPine BESYLATE 10 MG TABLET (FP) PO SCH (10:56)
[2017-07-09] MEDS: LISINOPRIL 20 MG TABLET (FP) PO SCH (10:56)
[2017-07-09 13:41] VITALS: BP 155/91; PULSE 70
== END 2017-07-09 15:00 | disposition home or self-care (01) ==
LOC: JER 00:48 → INTOOBSV 02:54 → JERBED 02:54 → UNDOADMIN 03:07 → J2W 10:31
PROVIDERS: ADMIT Internal Medicine; ATTEND Nurse Practitioner Acute Care
PROC: 3E033GC Introduction of Other Therapeutic Substance into Peripheral Vein, Percutaneous Approach (ICD-10-PCS; principal; 2017-07-08)
PROC: 3E013GC Introduction of Other Therapeutic Substance into Subcutaneous Tissue, Percutaneous Approach (ICD-10-PCS; 2017-07-08)
PROC: 3E033NZ Introduction of Analgesics, Hypnotics, Sedatives into Peripheral Vein, Percutaneous Approach (ICD-10-PCS; 2017-07-08)
DX: R07.89 Other chest pain (principal); I21.4 Non-ST elevation (NSTEMI) myocardial infarction; R94.31 Abnormal electrocardiogram [ECG] [EKG]; I10 Essential (primary) hypertension; I25.2 Old myocardial infarction; E78.5 Hyperlipidemia, unspecified; M10.9 Gout, unspecified; E87.6 Hypokalemia; E66.01 Morbid (severe) obesity due to excess calories; Z68.41 Body mass index [BMI] 40.0-44.9, adult; I42.9 Cardiomyopathy, unspecified
CPT/HCPCS: 36415; 71010-TC; 80048; 80053; 81003; 82550; 82553; 83735; 83880; 84100; 84484; 85025; 85610; 85651; 86140; 86850; 86900; 86901; 93005; 93010; 93306-TC; 99285-25; G0378; J1644

== ENCOUNTER 2018-08-19 03:02 | Emergency (ER) | payer BC ==
[2018-08-19 03:37] VITALS: BP 155/88; PULSE 55; TEMP 97.7; BMI 41.8
--- NOTE | 2018-08-19 03:52 | PDOC ---
History of Present Illness - General Chief Complaint: Blood Pressure Problem Stated Complaint: ELEVATED BLOOD PRESSURE Time Seen by Provider: 08/19/18 03:10 History Source: Patient Exam Limitations: No Limitations Past History - Past Medical History Allergies/Adverse Reactions: Allergies Allergy/AdvReac Type Severity Reaction Status Date / Time peanut Allergy Severe Hives,SWELL Verified 08/19/18 05:43 ING tree nut [Tree Nut] Allergy Severe Hives,SWELL Verified 08/19/18 05:43 ING No Known Drug Allergies Allergy Verified 08/19/18 05:43 shellfish derived AdvReac Severe GOUT Verified 08/19/18 05:43 Home Medications: Ambulatory Orders Amlodipine Besylate [Norvasc -] 10 mg PO DAILY 05/25/14 Diltiazem Cd [Cardizem Cd -] 300 mg PO DAILY 05/25/14 Lisinopril [Prinivil] 30 mg PO DAILY 05/25/14 Metoprolol Tartrate 50 mg PO BID 07/08/17 Atorvastatin Ca [Lipitor] 20 mg PO HS 08/19/18 Anemia: No Asthma: No Cancer: No Cardiac Disorders: No CVA: No COPD: No CHF: No DVT: No Dementia: No Diabetes: No Dialysis: No GI Disorders: Yes (GERD) Disorders: No HTN: Yes Hypercholesterolemia: Yes Kidney Stones: No Liver Disease: No Psychiatric Problems: No Seizures: No Thyroid Disease: No Lung CA: No - Surgical History Abdominal Surgery: No Appendectomy: Yes Cardiac Surgery: No Cholecystectomy: No Gastric Stapling: No GI Surgery: No Lung Surgery: No Neurologic Surgery: No Orthopedic Surgery: Yes (RIGHT SHOILDER SURGERY 1985) - Immunization History Immunization Up to Date: Yes - Suicide/Smoking/Psychosocial Hx Smoking History: Never smoked Have you smoked in the past 12 months: No Hx Alcohol Use: No Drug/Substance Use Hx: No Substance Use Type: None Hx Substance Use Treatment: No *Physical Exam - Vital Signs Last Vital Signs Temp Pulse Resp BP Pulse Ox 97.7 F 55 L 19 155/88 97 08/19/18 03:06 08/19/18 03:06 08/19/18 03:06 08/19/18 03:06 08/19/18 03:06 - Physical Exam General Appearance: No: Apparent Distress Respiratory/Chest: positive: Lungs Clear, Normal Breath Sounds. negative: Respiratory Distress Cardiovascular: positive: Regular Rhythm, Regular Rate, S1, S2. negative: Murmur Gastrointestinal/Abdominal: positive: Normal Bowel Sounds, Soft. negative: Tender, Distended, Guarding, Rebound Extremity: positive: Normal Inspection. negative: Pedal Edema, Calf Tenderness Neurologic: positive: customer engineer II-XII NML intact, Fully Oriented, Alert, Normal Mood/ Affect, Motor Strength 5/5 Moderate Sedation - Procedure Monitoring Vital Signs: Procedure Monitoring Vital Signs Temperature 97.7 F 08/19/18 03:06 Pulse Rate 55 L 08/19/18 03:06 Respiratory Rate 19 08/19/18 03:06 Blood Pressure 155/88 08/19/18 03:06 O2 Sat by Pulse Oximetry (%) 97 08/19/18 03:06 Heart Score/ECG Review - History History: Slightly suspicious #1 Sinus bradycardia at 55 bpm, LVH, TWI leads V4-V5 (unchanged from prior) 08/19/18 04:00 ED Treatment Course - LABORATORY CBC & Chemistry Diagram: 08/19/18 04:30 08/19/18 04:30 Medical Decision Making - Medical Decision Making 52 y/o M obese hx of HTN, HLD, cardiomyopathy dx 03/2017, gout presents with c/o elevated BP for around 1 week along with VERMA and lightheadedness. Patient is compliant with his HTN meds. Went to center 2 days ago where he was told to increase his Metoprolol from 25 mg BID to 50 mg BID. However, that didn't seem to help. States just checked at home recently before coming to ED and it was 185 /119. Took 2 extra strength Tylenol around an hour before coming as well. Denies fever, sob, cp, abd pain, n/v, visual/speech/gait changes, numbness/ tingling/weakness of extremities. PE with no focal deficits BP in ED not markedly elevated; consider atypical presentation of ACS with c/o lightheadedness Plan: CBC, BMP, troponin, EKG 08/19/18 03:47 Labs reviewed Trop is 0.08, but if trended, has always been 0.08 (has been even higher in past ) Do not think this is ACS; EKG with no changes from prior Patient reassessed and feeling better Advised to f/u with his pilot control operator and PCP 08/19/18 06:15 *DC/Admit/Observation/Transfer Diagnosis at time of Disposition: Hypertension Qualifiers: Hypertension type: essential hypertension Qualified Code(s): I10 - Essential ( primary) hypertension - Discharge Dispostion Disposition: HOME Condition at time of disposition: Good Decision to Admit order: No - Referrals Referrals: Nasrin Dawn MD [Primary Care Provider] - 2 Days Loco Bruner MD [Staff Physician] - 2 Days - Patient Instructions Printed Discharge Instructions: DI for High Blood Pressure, How to Monitor Your Blood Pressure at Home Additional Instructions: Thank you for choosing [facility]. It was a pleasure taking care of you. Continue taking your blood pressure medications as prescribed Follow-up with your pilot control operator and PCP in 2-3 days. Return to the Emergency Department if your symptoms worsen or persist, you have fever, shortness of breath, chest pain, severe abdominal pain, vomiting, weakness of extremities (arms and/or legs), changes in vision or walking or other concerning symptoms. - Post Discharge Activity
[2018-08-19] MEDS ORDERED: METOCLOPRAMIDE HCL INJECTION 10 MG/2 ML VIAL IVPB ONE (03:59)
[2018-08-19] MEDS ORDERED: METOCLOPRAMIDE HCL INJECTION 10 MG/2 ML VIAL ONE (04:23)
[2018-08-19 05:11] LABS: BASO % 0.9 % (0-2.0); EOS % 1.8 % (0-4.5); HEMATOCRIT 44.4 % (35.4-49); HEMOGLOBIN 14.5 GM/dL (11.7-16.9); LYMPH % 25.2 % (8-40); MCH 30.4 pg (25.7-33.7); MCHC 32.6 g/dl (32.0-35.9); MEAN CELL VOLUME 93.3 fl (80-96); MEAN PLT VOLUME 9.2 fl (7.5-11.1); MONO % 8.3 % (3.8-10.2); NEUT % 63.8 % (42.8-82.8); PLATELET COUNT 249 K/MM3 (134-434); RBC 4.76 M/mm3 (4.00-5.60); RDW 12.7 % (11.9-15.9)
[2018-08-19 05:33] LABS: ANION GAP 8 MMOL/L (8-16); BLOOD UREA NITROGEN 14 mg/dL (7-18); CALCIUM 8.6 mg/dL (8.5-10.1); CHLORIDE 104 mmol/L (98-107); CO2 28 mmol/L (21-32); CREATININE 0.9 mg/dL (0.55-1.3); GLUCOSE,RANDOM 103 mg/dL (74-106); POTASSIUM 3.5 mmol/L (3.5-5.1); SODIUM 140 mmol/L (136-145)
--- NOTE | 2018-08-19 10:20 | EKG ---
Test Reason : Blood Pressure : / mmHG Vent. Rate : 055 BPM Atrial Rate : 055 BPM P-R Int : 196 ms QRS Dur : 106 ms QT Int : 452 ms P-R-T Axes : 036 016 044 degrees QTc Int : 432 ms SINUS BRADYCARDIA VOLTAGE CRITERIA FOR LEFT VENTRICULAR HYPERTROPHY T WAVE ABNORMALITY, CONSIDER LATERAL ISCHEMIA ABNORMAL ECG WHEN COMPARED WITH ECG OF 08-JUL-2017 07:47, NONSPECIFIC T WAVE ABNORMALITY, IMPROVED IN ANTERIOR LEADS Confirmed by ELLIOTT KLEIN MD ([id number]) on 08/19/2018 10:19:54 AM Referred By: Confirmed By:ELLIOTT KLEIN MD
== END 2018-08-19 06:39 | disposition home or self-care (01) ==
LOC: JER 03:02
PROC: 3E0337Z Introduction of Electrolytic and Water Balance Substance into Peripheral Vein, Percutaneous Approach (ICD-10-PCS; principal; 2018-08-19)
DX: I10 Essential (primary) hypertension (principal); E78.5 Hyperlipidemia, unspecified; I42.9 Cardiomyopathy, unspecified
CPT/HCPCS: 36415; 80048; 82550; 84484; 85025; 93005; 93010; 99281-25

== ENCOUNTER 2020-07-24 19:23 | Emergency (ER) | payer BC ==
[2020-07-24 19:43] VITALS: BP 173/92; PULSE 74; TEMP 98.1; BMI 41.5
[2020-07-24] MEDS ORDERED: IBUPROFEN 600 MG TABLET (FP) PO ONE ×2 (20:56→21:00)
== END 2020-07-24 21:05 | disposition home or self-care (01) ==
LOC: FER 19:23
DX: R07.9 Chest pain, unspecified (principal)
CPT/HCPCS: 36415; 82550; 82553; 84484; 93005; 99284-25; C9803; U0003

== ENCOUNTER 2020-08-28 00:24 | Emergency (ER) | payer BC ==
[2020-08-28] MEDS ORDERED: ACETAMINOPHEN 500 MG TABLET (FP) ONE ×2 (00:30→00:42)
[2020-08-28] MEDS ORDERED: ACETAMINOPHEN 500 MG TABLET (FP) PO ONE (00:48)
[2020-08-28 01:02] VITALS: BP 141/71; PULSE 77; TEMP 101; BMI 45.6
== END 2020-08-28 01:51 | disposition home or self-care (01) ==
LOC: FER 00:24
DX: R50.9 Fever, unspecified (principal); Z03.818 Encounter for observation for suspected exposure to other biological agents ruled out
CPT/HCPCS: 99283-25; C9803; U0003

== ENCOUNTER 2021-01-15 05:19 | Observation (INO) | payer BC ==
[2021-01-15 05:38] VITALS: BMI 44.9
[2021-01-15] MEDS ORDERED: ACETAMINOPHEN 1000 MG/100 ML BAG IVPB ONE (06:06)
[2021-01-15] MEDS ORDERED: ACETAMINOPHEN INJECTION 100 ML IVPB ONE (06:14)
[2021-01-15 06:24] LABS: EOS % 1.5 % (0-4.5); HEMATOCRIT 38.5 % (35.4-49); HEMOGLOBIN 13.6 GM/dL (11.7-16.9); INR 1.07 (0.83-1.09); LYMPH % 16.4 % (8-40); MCH 32.2 pg (25.7-33.7); MCHC 35.3 g/dl (32.0-35.9); MEAN CELL VOLUME 91.1 fl (80-96); MONO % 9.7 % (3.8-10.2); NEUT % 71.4 % (42.8-82.8); PLATELET COUNT 200 K/MM3 (134-434); PROTHROMBIN TIME (PATIENT) 12.9 SEC (9.7-13.0); RBC 4.23 M/mm3 (4.00-5.60); RDW 12.5 % (11.9-15.9)
[2021-01-15 06:27] LABS: ACTIVATED PTT 28.8 SECONDS (25.2-36.5)
[2021-01-15 06:49] LABS: BLOOD UREA NITROGEN 18.4 mg/dL (7-18); CALCIUM 8.7 mg/dL (8.5-10.1)
[2021-01-15 06:50] LABS: ALBUMIN 3.7 g/dl (3.4-5.0)
[2021-01-15 06:53] LABS: CREATININE 1.2 mg/dL (0.55-1.3)
[2021-01-15 06:54] LABS: BILIRUBIN,TOTAL 0.7 mg/dL (0.2-1)
[2021-01-15 06:58] LABS: N-TERMINAL BNP 773.2 pg/ml (5-125)
[2021-01-15] MEDS ORDERED: niCARdipine HCL 25 MG/10 ML AMPUL IVPB ONE (08:14)
[2021-01-15] MEDS ORDERED: POTASSIUM CHLORIDE TABS 20 MEQ TABLET.ER (FP) PO ONE ×2 (08:28→08:50)
[2021-01-15] MEDS: NICARDIPINE 25 MG in DEXTROSE 5%-WATER - 240 ML IVPB SCH ×2 (08:46→08:48)
[2021-01-15] MEDS ORDERED: ASPIRIN 81 MG CHEWABLE TABLETS PO ONE (11:46)
[2021-01-15] MEDS ORDERED: ASPIRIN 81 MG CHEWABLE TABLETS ONE (12:15)
[2021-01-15] MEDS ORDERED: amLODIPine BESYLATE 10 MG TABLET (FP) PO ONE (22:18)
[2021-01-15] MEDS ORDERED: ACETAMINOPHEN 325 MG TABLET (FP) PO ONE (22:18)
[2021-01-16 07:11] LABS: BASO % 0.8 % (0-2.0); EOS % 1.9 % (0-4.5); HEMOGLOBIN 13.2 GM/dL (11.7-16.9); LYMPH % 22.7 % (8-40); MCH 31.7 pg (25.7-33.7); MCHC 33.8 g/dl (32.0-35.9); MEAN CELL VOLUME 93.9 fl (80-96); MEAN PLT VOLUME 10.3 fl (7.5-11.1); MONO % 11.2 % (3.8-10.2); NEUT % 63.4 % (42.8-82.8); PLATELET COUNT 188 K/MM3 (134-434); RBC 4.16 M/mm3 (4.00-5.60); RDW 13.1 % (11.9-15.9); WHITE BLOOD COUNT 9.8 K/mm3 (4.0-10.0)
[2021-01-16 07:29] LABS: ALBUMIN 3.3 g/dl (3.4-5.0)
[2021-01-16 07:30] LABS: CALCIUM 8.5 mg/dL (8.5-10.1)
[2021-01-16 07:31] LABS: BLOOD UREA NITROGEN 17.6 mg/dL (7-18)
[2021-01-16 07:33] LABS: BILIRUBIN,TOTAL 0.4 mg/dL (0.2-1); TOT PROT 6.4 g/dl (6.4-8.2)
[2021-01-16] MEDS: VALSARTAN 160 MG TABLET PO SCH (09:18)
[2021-01-16] MEDS: ASPIRIN 81 MG CHEWABLE TABLETS PO SCH (09:19)
[2021-01-16] MEDS: amLODIPine BESYLATE 10 MG TABLET (FP) PO SCH (09:19)
[2021-01-16] MEDS: HYDROCHLOROTHIAZIDE 25 MG TABLET (FP) PO SCH (09:20)
[2021-01-16] MEDS: NEBIVOLOL 10 MG TABLET (FP) PO SCH (09:20)
[2021-01-16] MEDS: TAMSULOSIN HCL 0.4 MG CAP PO SCH (09:20)
[2021-01-16] MEDS ORDERED: PATIENT'S OWN MEDICATION (NON-FORMULARY) (Candesartan/Hydrochlorothiazid [Candesartan-Hctz PO SCH (10:00)
[2021-01-16] MEDS ORDERED: predniSONE 20 MG TABLET (UD) PO ONE (16:26)
[2021-01-16] MEDS: ENOXAPARIN NA (PORCINE) 40 MG/0.4 ML DISP.SYRIN SQ SCH (17:12)
[2021-01-16] MEDS ORDERED: ACETAMINOPHEN 325 MG TABLET (FP) PO ONE (20:43)
[2021-01-16] MEDS ORDERED: COLCHICINE 0.6 MG TAB PO ONE (21:05)
[2021-01-16] MEDS: hydrALAZINE HCL 25 MG TABLET (FP) PO SCH (21:19)
[2021-01-17] MEDS: hydrALAZINE HCL 25 MG TABLET (FP) PO SCH ×4 (05:38→23:44)
[2021-01-17] MEDS: VALSARTAN 160 MG TABLET PO SCH ×2 (08:58→09:00)
[2021-01-17] MEDS: amLODIPine BESYLATE 10 MG TABLET (FP) PO SCH (08:59)
[2021-01-17] MEDS: NEBIVOLOL 10 MG TABLET (FP) PO SCH (08:59)
[2021-01-17] MEDS ORDERED: REGADENOSON 0.4 MG/5 ML PRE-FILLED SYRINGE IVPUSH ONE ×3 (10:00→13:25)
[2021-01-17] MEDS: HYDROCHLOROTHIAZIDE 25 MG TABLET (FP) PO SCH (11:29)
[2021-01-17] MEDS: TAMSULOSIN HCL 0.4 MG CAP PO SCH (11:30)
[2021-01-17] MEDS: COLCHICINE 0.6 MG TAB PO SCH (11:30)
[2021-01-17] MEDS: ENOXAPARIN NA (PORCINE) 40 MG/0.4 ML DISP.SYRIN SQ SCH (11:30)
[2021-01-17] MEDS: ASPIRIN 81 MG CHEWABLE TABLETS PO SCH (11:30)
[2021-01-18] MEDS: hydrALAZINE HCL 25 MG TABLET (FP) PO SCH ×3 (06:03→22:26)
[2021-01-18] MEDS: COLCHICINE 0.6 MG TAB PO SCH ×2 (06:16→09:17)
[2021-01-18] MEDS: NEBIVOLOL 10 MG TABLET (FP) PO SCH (09:15)
[2021-01-18] MEDS: amLODIPine BESYLATE 10 MG TABLET (FP) PO SCH (09:15)
[2021-01-18] MEDS: ASPIRIN 81 MG CHEWABLE TABLETS PO SCH (09:15)
[2021-01-18] MEDS: VALSARTAN 160 MG TABLET PO SCH (09:16)
[2021-01-18] MEDS: HYDROCHLOROTHIAZIDE 25 MG TABLET (FP) PO SCH (09:16)
[2021-01-18] MEDS: TAMSULOSIN HCL 0.4 MG CAP PO SCH (09:16)
[2021-01-18] MEDS: ENOXAPARIN NA (PORCINE) 40 MG/0.4 ML DISP.SYRIN SQ SCH (09:17)
[2021-01-18 14:08] LABS: URIC ACID 9.5 mg/dL (2.6-7.2)
[2021-01-18] MEDS: NAPROXEN 250 MG TABLET PO PRN ×2 (15:59→22:28)
[2021-01-18] MEDS ORDERED: PT OWN MED DRAWER 7, Y5N ONE ×2 (16:01→22:27)
[2021-01-19] MEDS: hydrALAZINE HCL 25 MG TABLET (FP) PO SCH (06:30)
[2021-01-19] MEDS ORDERED: PT OWN MED DRAWER 7, Y5N ONE (07:39)
[2021-01-19] MEDS: COLCHICINE 0.6 MG TAB PO SCH (07:40)
[2021-01-19 07:48] VITALS: BP 155/86; PULSE 66; TEMP 97.9
== END 2021-01-19 07:53 | disposition short-term general hospital (02) ==
LOC: JER 05:19 → INTOOBSV 11:57 → UNDOADMOB 11:57 → JERBED 11:57 → J4W 21:01
PROVIDERS: ADMIT Internal Medicine; ATTEND Internal Medicine
PROC: 3E033NZ Introduction of Analgesics, Hypnotics, Sedatives into Peripheral Vein, Percutaneous Approach (ICD-10-PCS; principal; 2021-01-16)
PROC: 3E023GC Introduction of Other Therapeutic Substance into Muscle, Percutaneous Approach (ICD-10-PCS; 2021-01-16)
PROC: 3E033GC Introduction of Other Therapeutic Substance into Peripheral Vein, Percutaneous Approach (ICD-10-PCS; 2021-01-16)
DX: I25.10 Atherosclerotic heart disease of native coronary artery without angina pectoris (principal); R07.89 Other chest pain; R94.31 Abnormal electrocardiogram [ECG] [EKG]; R07.9 Chest pain, unspecified; R74.8 Abnormal levels of other serum enzymes; G47.33 Obstructive sleep apnea (adult) (pediatric); E78.5 Hyperlipidemia, unspecified; I10 Essential (primary) hypertension; I25.2 Old myocardial infarction; I42.8 Other cardiomyopathies; M10.9 Gout, unspecified
CPT/HCPCS: 36415; 70498-TC; 71045-TC-FY; 71275-TC; 74174-TC; 78452-TC; 80053; 80061; 82550; 83721; 83880; 84439; 84443; 84484; 84550; 85025; 85610; 85730; 93005; 93010; 93017; 93306-TC; 96365; 96372; 96375; 99285-25; A9502; C9803; G0378; J0131; J2785; Q9967; U0003; U0005

== ENCOUNTER 2022-03-04 08:46 | Inpatient (IN) | payer BC ==
[2022-03-04 10:41] LABS: EOS % 0.9 % (0-4.5); HEMATOCRIT 40.8 % (35.4-49); HEMOGLOBIN 13.7 GM/dL (11.7-16.9); LYMPH % 19.1 % (8-40); MCH 31.3 pg (25.7-33.7); MCHC 33.6 g/dl (32.0-35.9); MEAN PLT VOLUME 10.1 fl (7.5-11.1); MONO % 8.2 % (3.8-10.2); NEUT % 70.8 % (42.8-82.8); PLATELET COUNT 188 10^3/uL (134-434); RBC 4.38 M/mm3 (4.00-5.60); RDW 12.5 % (11.9-15.9)
[2022-03-04 11:02] LABS: CALCIUM 9.1 mg/dL (8.5-10.1)
[2022-03-04 11:03] LABS: ALBUMIN 4.1 g/dl (3.4-5.0); BLOOD UREA NITROGEN 18.4 mg/dL (7-18)
[2022-03-04 11:06] LABS: CREATININE 1.2 mg/dL (0.55-1.3)
[2022-03-04 11:07] LABS: BILIRUBIN,TOTAL 0.9 mg/dL (0.2-1); TOT PROT 7.2 g/dl (6.4-8.2)
[2022-03-04 11:11] LABS: N-TERMINAL BNP 1762.9 pg/ml (5-125)
[2022-03-04] MEDS ORDERED: NITROGLYCERIN SUBLINGUAL 1/150 0.4 MG TAB SL ONE (12:40)
[2022-03-04] MEDS ORDERED: ASPIRIN 81 MG CHEWABLE TABLETS PO ONE (12:41)
[2022-03-04] MEDS ORDERED: NITROGLYCERIN SUBLINGUAL 1/150 0.4 MG TAB ONE (12:42)
[2022-03-04] MEDS ORDERED: ASPIRIN 81 MG CHEWABLE TABLETS ONE (12:45)
[2022-03-04] MEDS ORDERED: FUROSEMIDE 40 MG/4 ML INJECTABLE VIAL IVPUSH ONE (13:40)
[2022-03-04] MEDS ORDERED: FUROSEMIDE 40 MG/4 ML INJECTABLE VIAL ONE (13:48)
[2022-03-04] MEDS ORDERED: COLCHICINE 0.6 MG TAB PO PRN (15:07)
[2022-03-04] MEDS ORDERED: VALSARTAN 80 MG TABLET ONE (15:56)
[2022-03-04] MEDS: VALSARTAN 160 MG TABLET PO SCH (16:10)
[2022-03-04] MEDS ORDERED: ATORVASTATIN CA 20 MG TABLET (FP) ONE (22:39)
[2022-03-04] MEDS: ATORVASTATIN CA 20 MG TABLET (FP) PO SCH (22:41)
[2022-03-04] MEDS ORDERED: hydrALAZINE HCL 20 MG/ML VIAL IVPUSH ONE (23:42)
[2022-03-05 00:35] VITALS: BMI 43.9
[2022-03-05] MEDS ORDERED: ACETAMINOPHEN 325 MG TABLET (FP) PO ONE (04:55)
[2022-03-05] MEDS: VALSARTAN 160 MG TABLET PO SCH ×2 (06:43→09:26)
[2022-03-05] MEDS: amLODIPine BESYLATE 10 MG TABLET (FP) PO SCH ×2 (06:43→09:27)
[2022-03-05 07:20] LABS: BASO % 0.5 % (0-2.0); EOS % 2.1 % (0-4.5); HEMATOCRIT 38.7 % (35.4-49); HEMOGLOBIN 13.2 GM/dL (11.7-16.9); LYMPH % 20.2 % (8-40); MCH 31.7 pg (25.7-33.7); MCHC 34.1 g/dl (32.0-35.9); MEAN CELL VOLUME 92.9 fl (80-96); MEAN PLT VOLUME 10.7 fl (7.5-11.1); NEUT % 68.2 % (42.8-82.8); PLATELET COUNT 175 10^3/uL (134-434); RBC 4.17 M/mm3 (4.00-5.60); RDW 12.8 % (11.9-15.9); WHITE BLOOD COUNT 9.2 K/mm3 (4.0-10.0)
[2022-03-05 07:34] LABS: ALBUMIN 3.6 g/dl (3.4-5.0); BLOOD UREA NITROGEN 15.7 mg/dL (7-18); CALCIUM 8.8 mg/dL (8.5-10.1)
[2022-03-05 07:37] LABS: CREATININE 0.9 mg/dL (0.55-1.3)
[2022-03-05 07:38] LABS: TOT PROT 6.4 g/dl (6.4-8.2)
[2022-03-05] MEDS: FUROSEMIDE 40 MG TABLET (FP) PO SCH (09:26)
[2022-03-05] MEDS: ENOXAPARIN NA (PORCINE) 40 MG/0.4 ML DISP.SYRIN SQ SCH (09:26)
[2022-03-05] MEDS: TAMSULOSIN HCL 0.4 MG CAP PO SCH (09:26)
[2022-03-05] MEDS: EZETIMIBE 10 MG TABLET (FP) PO SCH (09:27)
[2022-03-05] MEDS: NEBIVOLOL 10 MG TABLET (FP) PO SCH (10:52)
[2022-03-05] MEDS ORDERED: VALSARTAN 160 MG TABLET PO ONE ×2 (12:33→16:15)
[2022-03-05] MEDS: ATORVASTATIN CA 20 MG TABLET (FP) PO SCH (21:09)
[2022-03-06] MEDS: EZETIMIBE 10 MG TABLET (FP) PO SCH (09:30)
[2022-03-06] MEDS: VALSARTAN 160 MG TABLET PO SCH (09:30)
[2022-03-06] MEDS: TAMSULOSIN HCL 0.4 MG CAP PO SCH (09:30)
[2022-03-06] MEDS: ENOXAPARIN NA (PORCINE) 40 MG/0.4 ML DISP.SYRIN SQ SCH (09:30)
[2022-03-06] MEDS: FUROSEMIDE 40 MG TABLET (FP) PO SCH (09:30)
[2022-03-06] MEDS: NIFEdipine E.R. 30 MG TABLET PO SCH ×2 (09:30→21:27)
[2022-03-06] MEDS: NEBIVOLOL 10 MG TABLET (FP) PO SCH (09:30)
[2022-03-06] MEDS: hydrALAZINE HCL 25 MG TABLET (FP) PO SCH ×3 (12:43→21:27)
[2022-03-06] MEDS ORDERED: NIFEdipine E.R. 30 MG TABLET PO ONE (17:21)
[2022-03-06] MEDS: ATORVASTATIN CA 20 MG TABLET (FP) PO SCH (21:27)
[2022-03-06] MEDS: POTASSIUM CHLORIDE TABS 10 MEQ TABLET.ER (FP) PO SCH (21:27)
[2022-03-06] MEDS ORDERED: ACETAMINOPHEN 325 MG TABLET (FP) PO PRN (22:43)
[2022-03-07] MEDS: hydrALAZINE HCL 25 MG TABLET (FP) PO SCH ×2 (06:33→14:01)
[2022-03-07 06:52] VITALS: PULSE 64
[2022-03-07 09:28] VITALS: BP 144/94; TEMP 98
[2022-03-07] MEDS: ENOXAPARIN NA (PORCINE) 40 MG/0.4 ML DISP.SYRIN SQ SCH (09:33)
[2022-03-07] MEDS: NEBIVOLOL 10 MG TABLET (FP) PO SCH (09:33)
[2022-03-07] MEDS: FUROSEMIDE 40 MG TABLET (FP) PO SCH (09:33)
[2022-03-07] MEDS: EZETIMIBE 10 MG TABLET (FP) PO SCH (09:34)
[2022-03-07] MEDS: TAMSULOSIN HCL 0.4 MG CAP PO SCH (09:34)
[2022-03-07] MEDS: VALSARTAN 160 MG TABLET PO SCH (09:34)
[2022-03-07] MEDS: POTASSIUM CHLORIDE TABS 10 MEQ TABLET.ER (FP) PO SCH (09:34)
[2022-03-07] MEDS: NIFEdipine E.R. 30 MG TABLET PO SCH (09:35)
== END 2022-03-07 14:30 | disposition home or self-care (01) | DRG 291 ==
LOC: JER 08:46 → JERBED 12:44 → J4W 22:57 → OBSVTOIN 03-05 13:28
PROVIDERS: ADMIT Internal Medicine; ATTEND Internal Medicine
DX: I11.0 Hypertensive heart disease with heart failure (principal); I50.33 Acute on chronic diastolic (congestive) heart failure; Z68.41 Body mass index [BMI] 40.0-44.9, adult; I24.8 Other forms of acute ischemic heart disease; E78.5 Hyperlipidemia, unspecified; M10.9 Gout, unspecified; I25.10 Atherosclerotic heart disease of native coronary artery without angina pectoris; K21.9 Gastro-esophageal reflux disease without esophagitis; G47.33 Obstructive sleep apnea (adult) (pediatric); R73.03 Prediabetes; N40.0 Benign prostatic hyperplasia without lower urinary tract symptoms; E66.01 Morbid (severe) obesity due to excess calories; R07.89 Other chest pain; I25.2 Old myocardial infarction; R74.8 Abnormal levels of other serum enzymes; I16.0 Hypertensive urgency
CPT/HCPCS: 36415; 71046-TC-FY; 80053; 80061; 83036; 83880; 84484; 85025; 93005; 93010; 94010; 94660; 99285-25; C9803-CS; G0378; U0003; U0005

== ENCOUNTER 2022-03-18 08:41 | Observation (INO) | payer BC ==
[2022-03-18] MEDS ORDERED: ACETAMINOPHEN 325 MG TABLET (FP) PO ONE (09:32)
[2022-03-18] MEDS ORDERED: ACETAMINOPHEN 325 MG TABLET (FP) ONE ×2 (09:33→17:56)
[2022-03-18 10:13] LABS: BASO % 0.4 % (0-2.0); EOS % 1.1 % (0-4.5); HEMATOCRIT 42.9 % (35.4-49); HEMOGLOBIN 14.4 GM/dL (11.7-16.9); LYMPH % 5.7 % (8-40); MCH 31.1 pg (25.7-33.7); MCHC 33.7 g/dl (32.0-35.9); MEAN CELL VOLUME 92.4 fl (80-96); MEAN PLT VOLUME 9.9 fl (7.5-11.1); MONO % 13.1 % (3.8-10.2); NEUT % 79.7 % (42.8-82.8); PLATELET COUNT 225 10^3/uL (134-434); RBC 4.64 M/mm3 (4.00-5.60); RDW 12.5 % (11.9-15.9); WHITE BLOOD COUNT 8.7 K/mm3 (4.0-10.0)
[2022-03-18 10:25] LABS: CHLORIDE 104 mmol/L (98-107); SODIUM 138 mmol/L (136-145)
[2022-03-18 10:28] LABS: CALCIUM 9.4 mg/dL (8.5-10.1); GLUCOSE,RANDOM 105 mg/dL (74-106)
[2022-03-18 10:29] LABS: ANION GAP 4 MMOL/L (8-16); BLOOD UREA NITROGEN 13.5 mg/dL (7-18); CO2 30 mmol/L (21-32)
[2022-03-18 10:32] LABS: BILIRUBIN,TOTAL 0.7 mg/dL (0.2-1); SGOT/AST 52 U/L (15-37); SGPT/ALT 93 U/L (13-61)
[2022-03-18 10:34] LABS: ALK PHOS 131 U/L (45-117); TOT PROT 7.5 g/dl (6.4-8.2)
[2022-03-18 11:04] LABS: INR 1.09 (0.83-1.09); PROTHROMBIN TIME (PATIENT) 12.5 SEC (9.7-13.0)
[2022-03-18 11:06] LABS: ACTIVATED PTT 30.5 SECONDS (25.2-36.5)
[2022-03-18] MEDS ORDERED: METOCLOPRAMIDE HCL INJECTION 10 MG/2 ML VIAL IVPB ONE (12:32)
[2022-03-18] MEDS ORDERED: METOCLOPRAMIDE HCL INJECTION 10 MG/2 ML VIAL ONE (12:33)
[2022-03-18] MEDS: ACETAMINOPHEN 325 MG TABLET (FP) PO PRN ×2 (17:59→21:19)
[2022-03-18] MEDS: hydrALAZINE HCL 25 MG TABLET (FP) PO SCH (21:20)
[2022-03-18] MEDS: HEPARIN NA (PORCINE) 5,000 UNITS/ML 1ML VIAL SQ SCH (21:20)
[2022-03-18] MEDS: NIFEdipine E.R. 30 MG TABLET PO SCH (21:20)
[2022-03-18] MEDS: ATORVASTATIN CA 20 MG TABLET (FP) PO SCH (21:20)
[2022-03-18 23:11] VITALS: BMI 34.7
[2022-03-19 07:43] LABS: BASO % 0.5 % (0-2.0); EOS % 0.3 % (0-4.5); HEMATOCRIT 39.3 % (35.4-49); HEMOGLOBIN 13.5 GM/dL (11.7-16.9); LYMPH % 16.1 % (8-40); MCH 31.6 pg (25.7-33.7); MCHC 34.2 g/dl (32.0-35.9); MEAN CELL VOLUME 92.3 fl (80-96); MEAN PLT VOLUME 9.3 fl (7.5-11.1); MONO % 19.6 % (3.8-10.2); NEUT % 63.5 % (42.8-82.8); PLATELET COUNT 186 10^3/uL (134-434); RBC 4.26 M/mm3 (4.00-5.60); RDW 12.5 % (11.9-15.9); WHITE BLOOD COUNT 6.5 K/mm3 (4.0-10.0)
[2022-03-19] MEDS: TAMSULOSIN HCL 0.4 MG CAP PO SCH (08:00)
[2022-03-19] MEDS: hydrALAZINE HCL 25 MG TABLET (FP) PO SCH ×3 (08:00→22:06)
[2022-03-19] MEDS: ACETAMINOPHEN 325 MG TABLET (FP) PO PRN ×3 (08:00→22:06)
[2022-03-19 08:39] LABS: BLOOD UREA NITROGEN 10.8 mg/dL (7-18); CALCIUM 8.6 mg/dL (8.5-10.1)
[2022-03-19 08:40] LABS: ALBUMIN 3.6 g/dl (3.4-5.0)
[2022-03-19 08:42] LABS: URIC ACID 7.9 mg/dL (2.6-7.2)
[2022-03-19 08:43] LABS: CREATININE 0.9 mg/dL (0.55-1.3)
[2022-03-19 08:44] LABS: BILIRUBIN,TOTAL 0.7 mg/dL (0.2-1); TOT PROT 6.6 g/dl (6.4-8.2)
[2022-03-19] MEDS: NIFEdipine E.R. 30 MG TABLET PO SCH ×2 (10:03→22:09)
[2022-03-19] MEDS: HEPARIN NA (PORCINE) 5,000 UNITS/ML 1ML VIAL SQ SCH ×2 (10:03→22:07)
[2022-03-19] MEDS: FUROSEMIDE 40 MG TABLET (FP) PO SCH (10:06)
[2022-03-19] MEDS: NEBIVOLOL 10 MG TABLET (FP) PO SCH (10:07)
[2022-03-19] MEDS: EZETIMIBE 10 MG TABLET (FP) PO SCH (10:08)
[2022-03-19] MEDS: VALSARTAN 160 MG TABLET PO SCH (11:45)
[2022-03-19] MEDS: ATORVASTATIN CA 20 MG TABLET (FP) PO SCH (22:07)
[2022-03-20] MEDS ORDERED: SODIUM CHLORIDE NASAL SPRAY 44 ML BOTTLE NS PRN (01:21)
[2022-03-20] MEDS: hydrALAZINE HCL 25 MG TABLET (FP) PO SCH ×3 (06:48→21:13)
[2022-03-20] MEDS: TAMSULOSIN HCL 0.4 MG CAP PO SCH (08:37)
[2022-03-20] MEDS: ACETAMINOPHEN 325 MG TABLET (FP) PO PRN (08:37)
[2022-03-20] MEDS: EZETIMIBE 10 MG TABLET (FP) PO SCH (10:06)
[2022-03-20] MEDS: NEBIVOLOL 10 MG TABLET (FP) PO SCH (10:06)
[2022-03-20] MEDS: NIFEdipine E.R. 30 MG TABLET PO SCH ×2 (10:06→21:13)
[2022-03-20] MEDS: HEPARIN NA (PORCINE) 5,000 UNITS/ML 1ML VIAL SQ SCH ×2 (10:06→21:13)
[2022-03-20] MEDS: VALSARTAN 160 MG TABLET PO SCH (10:07)
[2022-03-20] MEDS: FUROSEMIDE 40 MG TABLET (FP) PO SCH (10:07)
[2022-03-20] MEDS: ACETAMINOPHEN 1000 MG/100 ML BAG IVPB PRN ×2 (13:50→21:11)
[2022-03-20] MEDS: MELATONIN 5 MG TABLETS PO PRN (21:13)
[2022-03-20] MEDS: ATORVASTATIN CA 20 MG TABLET (FP) PO SCH (21:13)
[2022-03-21] MEDS: MELATONIN 5 MG TABLETS PO PRN (03:14)
[2022-03-21] MEDS: hydrALAZINE HCL 25 MG TABLET (FP) PO SCH ×3 (05:05→21:01)
[2022-03-21] MEDS: ACETAMINOPHEN 325 MG TABLET (FP) PO PRN ×2 (05:05→18:10)
[2022-03-21] MEDS: TAMSULOSIN HCL 0.4 MG CAP PO SCH (09:00)
[2022-03-21] MEDS: NEBIVOLOL 10 MG TABLET (FP) PO SCH (09:30)
[2022-03-21] MEDS: NIFEdipine E.R. 30 MG TABLET PO SCH (09:30)
[2022-03-21] MEDS: VALSARTAN 160 MG TABLET PO SCH (09:30)
[2022-03-21] MEDS: FLUTICASONE PROP 0.05% 16 GM NASAL SPRAY NS SCH (09:31)
[2022-03-21] MEDS: HEPARIN NA (PORCINE) 5,000 UNITS/ML 1ML VIAL SQ SCH ×2 (09:31→21:00)
[2022-03-21] MEDS: FUROSEMIDE 40 MG TABLET (FP) PO SCH (09:31)
[2022-03-21] MEDS: EZETIMIBE 10 MG TABLET (FP) PO SCH (09:31)
[2022-03-21] MEDS ORDERED: MELATONIN 5 MG TABLETS PO PRN (20:37)
[2022-03-21] MEDS: ATORVASTATIN CA 20 MG TABLET (FP) PO SCH (21:00)
[2022-03-22] MEDS: hydrALAZINE HCL 25 MG TABLET (FP) PO SCH ×3 (05:13→21:55)
[2022-03-22] MEDS: TAMSULOSIN HCL 0.4 MG CAP PO SCH (08:10)
[2022-03-22] MEDS: EZETIMIBE 10 MG TABLET (FP) PO SCH (10:43)
[2022-03-22] MEDS: FUROSEMIDE 40 MG TABLET (FP) PO SCH (10:43)
[2022-03-22] MEDS: VALSARTAN 160 MG TABLET PO SCH (10:43)
[2022-03-22] MEDS: NIFEdipine E.R. 90 MG TABLET PO SCH (10:43)
[2022-03-22] MEDS: NEBIVOLOL 10 MG TABLET (FP) PO SCH (10:43)
[2022-03-22] MEDS: FLUTICASONE PROP 0.05% 16 GM NASAL SPRAY NS SCH (10:44)
[2022-03-22] MEDS: HEPARIN NA (PORCINE) 5,000 UNITS/ML 1ML VIAL SQ SCH ×2 (10:44→21:55)
[2022-03-22] MEDS: ACETAMINOPHEN 325 MG TABLET (FP) PO PRN ×2 (14:30→21:55)
[2022-03-22] MEDS: ATORVASTATIN CA 20 MG TABLET (FP) PO SCH (21:55)
[2022-03-23] MEDS: hydrALAZINE HCL 25 MG TABLET (FP) PO SCH ×2 (05:17→13:37)
[2022-03-23] MEDS: TAMSULOSIN HCL 0.4 MG CAP PO SCH (08:32)
[2022-03-23] MEDS: VALSARTAN 160 MG TABLET PO SCH (09:21)
[2022-03-23] MEDS: FUROSEMIDE 40 MG TABLET (FP) PO SCH (09:22)
[2022-03-23] MEDS: HEPARIN NA (PORCINE) 5,000 UNITS/ML 1ML VIAL SQ SCH (09:22)
[2022-03-23] MEDS: FLUTICASONE PROP 0.05% 16 GM NASAL SPRAY NS SCH (09:22)
[2022-03-23] MEDS: EZETIMIBE 10 MG TABLET (FP) PO SCH (09:22)
[2022-03-23] MEDS: NIFEdipine E.R. 90 MG TABLET PO SCH (09:22)
[2022-03-23] MEDS: NEBIVOLOL 10 MG TABLET (FP) PO SCH (09:22)
[2022-03-23 13:00] VITALS: TEMP 98.4
[2022-03-23 13:10] VITALS: PULSE 61
[2022-03-23 16:12] VITALS: BP 145/90
== END 2022-03-23 15:45 | disposition home or self-care (01) ==
LOC: JER 08:41 → JERBED 13:38 → J2W 20:32
PROVIDERS: ADMIT Internal Medicine; ATTEND Internal Medicine
PROC: 3E033NZ Introduction of Analgesics, Hypnotics, Sedatives into Peripheral Vein, Percutaneous Approach (ICD-10-PCS; principal; 2022-03-18)
PROC: 3E033GC Introduction of Other Therapeutic Substance into Peripheral Vein, Percutaneous Approach (ICD-10-PCS; 2022-03-18)
DX: I25.10 Atherosclerotic heart disease of native coronary artery without angina pectoris (principal); I11.9 Hypertensive heart disease without heart failure; R73.03 Prediabetes; K21.9 Gastro-esophageal reflux disease without esophagitis; E78.5 Hyperlipidemia, unspecified; Z91.013 Allergy to seafood; Z91.041 Radiographic dye allergy status; E66.9 Obesity, unspecified; Z68.34 Body mass index [BMI] 34.0-34.9, adult
CPT/HCPCS: 36415; 70450-TC; 71045-TC-FY; 76775-TC; 80053; 82570; 82728; 84436; 84439; 84443; 84484; 84550; 84585; 85025; 85610; 85651; 85730; 86850; 86900; 86901; 87040; 93005; 93010; 99285-25; C9803-CS; G0378; J1644; U0003; U0005

== ENCOUNTER 2023-02-26 17:20 | Observation (INO) | payer BC ==
[2023-02-26] MEDS ORDERED: METOCLOPRAMIDE HCL INJECTION 10 MG/2 ML VIAL IVPB ONE (18:54)
[2023-02-26] MEDS ORDERED: ACETAMINOPHEN 1000 MG/100 ML BAG IVPB ONE (18:54)
[2023-02-26] MEDS ORDERED: LIDOCAINE 5% TOPICAL PATCH TP ONE (19:33)
[2023-02-26] MEDS ORDERED: ACETAMINOPHEN INJECTION 100 ML IVPB ONE (19:36)
[2023-02-26] MEDS ORDERED: METOCLOPRAMIDE HCL INJECTION 10 MG/2 ML VIAL ONE (19:36)
[2023-02-26] MEDS ORDERED: LIDOCAINE 5% TOPICAL PATCH ONE (19:36)
[2023-02-26 19:43] LABS: BASO % 0.9 % (0-2.0); EOS % 1.1 % (0-4.5); HEMATOCRIT 42.5 % (35.4-49); HEMOGLOBIN 13.9 GM/dL (11.7-16.9); LYMPH % 17.3 % (8-40); MCH 30.7 pg (25.7-33.7); MCHC 32.7 g/dl (32.0-35.9); MEAN CELL VOLUME 93.9 fl (80-96); MEAN PLT VOLUME 9.5 fl (7.5-11.1); MONO % 7.9 % (3.8-10.2); NEUT % 72.8 % (42.8-82.8); PLATELET COUNT 278 10^3/uL (134-434); RBC 4.53 M/mm3 (4.00-5.60); RDW 13.2 % (11.9-15.9); WHITE BLOOD COUNT 12.7 K/mm3 (4.0-10.0)
[2023-02-26 20:01] LABS: POTASSIUM 4.9 mmol/L (3.5-5.1)
[2023-02-26 20:03] LABS: BLOOD UREA NITROGEN 9.7 mg/dL (7-18); CALCIUM 9.6 mg/dL (8.5-10.1)
[2023-02-26 20:06] LABS: CREATININE 0.9 mg/dL (0.55-1.3)
[2023-02-26 20:08] LABS: BILIRUBIN,TOTAL 0.7 mg/dL (0.2-1); TOT PROT 7.9 g/dl (6.4-8.2)
[2023-02-26] MEDS ORDERED: LIDOCAINE PATCH REMOVAL MC SCH (22:00)
[2023-02-27 04:24] VITALS: BMI 42.7
[2023-02-27] MEDS ORDERED: LABETALOL HCL 20 MG/4 ML VIAL IVPUSH ONE (05:37)
[2023-02-27] MEDS ORDERED: FUROSEMIDE 40 MG/4 ML INJECTABLE VIAL IVPUSH SCH (06:00)
[2023-02-27] MEDS ORDERED: NEBIVOLOL 10 MG TABLET (FP) PO ONE (08:00)
[2023-02-27] MEDS ORDERED: VALSARTAN 160 MG TABLET PO ONE (08:00)
[2023-02-27] MEDS ORDERED: NIFEdipine E.R. 90 MG TABLET PO ONE (08:01)
[2023-02-27] MEDS ORDERED: TAMSULOSIN HCL 0.4 MG CAP PO SCH (08:30)
[2023-02-27 08:37] LABS: INR 1.1 (0.83-1.09); PROTHROMBIN TIME (PATIENT) 12.7 SEC (9.7-13.0)
[2023-02-27 08:38] LABS: HEMATOCRIT 42.1 % (35.4-49); MCH 31.1 pg (25.7-33.7); MCHC 33.3 g/dl (32.0-35.9); MEAN CELL VOLUME 93.4 fl (80-96); MEAN PLT VOLUME 9.8 fl (7.5-11.1); PLATELET COUNT 270 10^3/uL (134-434); RDW 12.9 % (11.9-15.9); WHITE BLOOD COUNT 9.1 K/mm3 (4.0-10.0)
[2023-02-27 08:43] VITALS: RESP 16
[2023-02-27 08:45] VITALS: BP 152/82; PULSE 63; TEMP 98.4
[2023-02-27 09:18] LABS: POTASSIUM 3.4 mmol/L (3.5-5.1)
[2023-02-27 09:22] LABS: BLOOD UREA NITROGEN 9.2 mg/dL (7-18)
[2023-02-27 09:25] LABS: CALCIUM 9.5 mg/dL (8.5-10.1); CREATININE 0.8 mg/dL (0.55-1.3); MAGNESIUM 1.7 mg/dL (1.8-2.4)
[2023-02-27 09:26] LABS: PHOSPHOROUS 3.7 mg/dL (2.5-4.9)
[2023-02-27 09:33] LABS: N-TERMINAL BNP 321.4 pg/ml (5-125)
[2023-02-27] MEDS ORDERED: hydrALAZINE HCL 50 MG TABLET (FP) PO ONE (09:50)
[2023-02-27] MEDS ORDERED: VALSARTAN 160 MG TABLET PO SCH (10:00)
[2023-02-27] MEDS ORDERED: NEBIVOLOL 10 MG TABLET (FP) PO SCH (10:00)
[2023-02-27] MEDS ORDERED: EZETIMIBE 10 MG TABLET (FP) PO SCH (10:00)
[2023-02-27] MEDS ORDERED: COLCHICINE 0.6 MG TAB PO SCH (10:00)
[2023-02-27] MEDS ORDERED: FUROSEMIDE 40 MG TABLET (FP) PO SCH ×2 (10:00)
[2023-02-27] MEDS ORDERED: ENOXAPARIN NA (PORCINE) 40 MG/0.4 ML DISP.SYRIN SQ SCH ×2 (10:00)
[2023-02-27] MEDS ORDERED: NIFEdipine E.R. 90 MG TABLET PO SCH (10:00)
[2023-02-27] MEDS ORDERED: POTASSIUM CHLORIDE TABS 20 MEQ TABLET.ER (FP) PO ONE (12:30)
[2023-02-27] MEDS ORDERED: MAGNESIUM OXIDE 400 MG TABLET (FP) PO ONE (12:30)
[2023-02-27] MEDS ORDERED: hydrALAZINE HCL 50 MG TABLET (FP) PO SCH (14:00)
[2023-02-27] MEDS ORDERED: ATORVASTATIN CA 20 MG TABLET (FP) PO SCH (22:00)
== END 2023-02-27 13:25 | disposition home or self-care (01) ==
LOC: JER 17:20 → JERBED 22:05 → J4W 02-27 03:51
PROVIDERS: ADMIT Internal Medicine; ATTEND Internal Medicine
PROC: 3E033NZ Introduction of Analgesics, Hypnotics, Sedatives into Peripheral Vein, Percutaneous Approach (ICD-10-PCS; principal; 2023-02-26)
PROC: 3E023GC Introduction of Other Therapeutic Substance into Muscle, Percutaneous Approach (ICD-10-PCS; 2023-02-26)
PROC: 3E033GC Introduction of Other Therapeutic Substance into Peripheral Vein, Percutaneous Approach (ICD-10-PCS; 2023-02-26)
DX: I16.0 Hypertensive urgency (principal); I11.0 Hypertensive heart disease with heart failure; R73.03 Prediabetes; E78.5 Hyperlipidemia, unspecified; M10.9 Gout, unspecified; G47.33 Obstructive sleep apnea (adult) (pediatric); N40.0 Benign prostatic hyperplasia without lower urinary tract symptoms; I25.10 Atherosclerotic heart disease of native coronary artery without angina pectoris; I25.2 Old myocardial infarction; R77.8 Other specified abnormalities of plasma proteins; E87.6 Hypokalemia; E83.42 Hypomagnesemia; Z91.199 Patient's noncompliance with other medical treatment and regimen due to unspecified reason; I50.9 Heart failure, unspecified; D72.829 Elevated white blood cell count, unspecified; Z91.013 Allergy to seafood
CPT/HCPCS: 36415; 70450-TC; 71046-TC-FY; 80048; 80053; 83735; 83880; 84100; 84484; 85025; 85027; 85610; 93005; 93010; 99285-25; G0378

== ENCOUNTER 2024-06-27 08:09 | Emergency (ER) | payer BC ==
[2024-06-27 08:16] VITALS: BP 142/81; PULSE 67; RESP 20; TEMP 98.5; BMI 41.8
[2024-06-27 12:35] LABS: HIV INTERPRETATION NEGATIVE (NEGATIVE)
== END 2024-06-27 10:25 | disposition home or self-care (01) ==
LOC: JER 08:09
DX: G56.12 Other lesions of median nerve, left upper limb (principal); R20.0 Anesthesia of skin; R20.2 Paresthesia of skin
CPT/HCPCS: 36415; 86803; 87389; 93005; 93010; 99284-25